=== PATIENT | female | born 1950 | race Caucasian/White ===

== ENCOUNTER 2019-07-10 17:30 | Emergency (ER) | payer MEDICARE, OTHER ==
[~2019-07-10] VITALS: Ht 165.1 cm; Wt 59.0 kg
[~2019-07-10 17:30] MED LIST: CYCL10 PO; HYDACE5 PO; IBUP800 PO; METF500; NYSTRI30T TOP; PIOG45; SULTRIDS PO
[2019-07-10 18:25] LABS: BASOPHILS ABSOLUTE AUTO 0.07 K/mm3 (0.00-0.23); BASOPHILS PERCENT AUTO 1 % (0-2); EOSINOPHILS PERCENT AUTO 1 % (0-6); Hemoglobin 14.9 g/dL (11.5-16.0); IMMATURE GRAN ABSOLUTE AUTO 0.19 K/mm3 (0.00-0.10); IMMATURE GRAN PERCENT AUTO 2 % (0-1); LYMPHOCYTES ABSOLUTE AUTO 2.37 K/mm3 (0.84-5.20); LYMPHOCYTES PERCENT AUTO 24 % (21-46); MONOCYTES ABSOLUTE AUTO 0.66 K/mm3 (0.16-1.47); MONOCYTES PERCENT AUTO 7 % (4-13); Mean Corpuscular HGB 31.2 pg (26.0-34.0); Mean Corpuscular HGB Conc 33.1 g/dL (31.5-36.5); Mean Corpuscular Volume 94 fL (80-100); NEUTROPHILS ABSOLUTE AUTO 6.68 K/mm3 (1.96-9.15); NEUTROPHILS PERCENT AUTO 66 % (41-73); Platelet Count 314 K/mm3 (150-400); RDW Coefficient Variation 12.6 % (11.7-14.2); RDW Standard Deviation 44.2 fL (35.1-46.3); Red Blood Cell Count 4.78 M/mm3 (3.80-5.20); White Blood Cell Count 10.07 K/mm3 (4.00-11.30)
[2019-07-10 18:55] LABS: Alanine Aminotransfer (ALT/SGP 18 U/L (12-78); Albumin, Blood 3.1 g/dL (3.4-5.0); Albumin/Globulin Ratio 0.7 (0.8-1.8); Alk Phos 103 U/L (50-136); Anion Gap 5 mmol/L (6-16); Aspartate Aminotrans (AST/SGOT 14 U/L (12-37); Bilirubin, Total 0.3 mg/dL (0.1-1.0); Blood Urea Nitrogen 24 mg/dL (8-24); Bun/Creatinine Ratio 25.4 (12.0-20.0); CO2, Blood 28 mmol/L (21-32); Calcium, Blood 9.1 mg/dL (8.5-10.1); Chloride, Blood 103 mmol/L (98-108); Creatinine, Blood 0.94 mg/dL (0.40-1.00); Globulin, Blood 4.3 g/dL (2.2-4.0); Glomerular Filtration Rate >60 (60-); Glucose, Blood 304 mg/dL (70-99); Potassium, Blood 3.7 mmol/L (3.5-5.5); Sodium, Blood 136 mmol/L (136-145); Total Protein, Blood 7.4 g/dL (6.4-8.2)
== END 2019-07-10 20:58 | disposition home or self-care (01) ==
LOC: ER 17:30
PROVIDERS: Physician Assistant
DX: R55 Syncope and collapse (principal); E11.9 Type 2 diabetes mellitus without complications; Z79.84 Long term (current) use of oral hypoglycemic drugs; Z79.899 Other long term (current) drug therapy; F17.200 Nicotine dependence, unspecified, uncomplicated
CPT/HCPCS: 36415; 80053; 85025; 93005; 93010; 99284-25

== ENCOUNTER 2019-09-06 17:32 | Inpatient (IN) | payer MEDICARE, OTHER ==
[~2019-09-06] VITALS: Ht 167.6 cm; Wt 67.3 kg
[2019-09-06 18:39] LABS: BASOPHILS ABSOLUTE AUTO 0.05 K/mm3 (0.00-0.23); BASOPHILS PERCENT AUTO 0 % (0-2); EOSINOPHILS ABSOLUTE AUTO 0.01 K/mm3 (0.00-0.68); EOSINOPHILS PERCENT AUTO 0 % (0-6); Hematocrit 41.8 % (33.0-51.0); Hemoglobin 14.2 g/dL (11.5-16.0); IMMATURE GRAN ABSOLUTE AUTO 0.19 K/mm3 (0.00-0.10); IMMATURE GRAN PERCENT AUTO 1 % (0-1); LYMPHOCYTES ABSOLUTE AUTO 0.88 K/mm3 (0.84-5.20); LYMPHOCYTES PERCENT AUTO 7 % (21-46); MONOCYTES ABSOLUTE AUTO 0.58 K/mm3 (0.16-1.47); MONOCYTES PERCENT AUTO 4 % (4-13); Mean Corpuscular HGB 31.2 pg (26.0-34.0); Mean Corpuscular Volume 92 fL (80-100); Mean Platelet Volume 11.3 fL (9.1-12.4); NEUTROPHILS PERCENT AUTO 87 % (41-73); Platelet Count 297 K/mm3 (150-400); RDW Standard Deviation 43.9 fL (35.1-46.3); Red Blood Cell Count 4.55 M/mm3 (3.80-5.20); White Blood Cell Count 13.21 K/mm3 (4.00-11.30)
[2019-09-06 19:04] LABS: Alanine Aminotransfer (ALT/SGP 12 U/L (12-78); Albumin, Blood 2.8 g/dL (3.4-5.0); Albumin/Globulin Ratio 0.7 (0.8-1.8); Alk Phos 90 U/L (50-136); Anion Gap 6 mmol/L (6-16); Aspartate Aminotrans (AST/SGOT 10 U/L (12-37); Bilirubin, Total 0.4 mg/dL (0.1-1.0); Blood Urea Nitrogen 24 mg/dL (8-24); Bun/Creatinine Ratio 29.6 (12.0-20.0); CO2, Blood 28 mmol/L (21-32); Chloride, Blood 103 mmol/L (98-108); Creatinine, Blood 0.81 mg/dL (0.40-1.00); Globulin, Blood 4.3 g/dL (2.2-4.0); Glomerular Filtration Rate >60 (60-); Glucose, Blood 309 mg/dL (70-99); Sodium, Blood 137 mmol/L (136-145); Total Protein, Blood 7.1 g/dL (6.4-8.2)
[2019-09-06 20:04] LABS: Source, Urine Clean Catch
[2019-09-06 20:08] LABS: Bilirubin, Urine Neg (Neg); Blood, Urine 2+ (Neg); Glucose Qualitative, Urine 4+ (Neg); Ketones, Urine 2+ (Neg); Leukocyte Esterase, Urine 1+ (Neg); Nitrite, Urine Neg (Neg); Protein, Urine 4+ (Neg); Specific Gravity, Urine 1.025 (1.003-1.022); Urobilinogen, Urine NORM (Normal)
[2019-09-06 20:16] LABS: Appearance, Urine Hazy (Clear); Color, Urine Yellow (P-Yellow)
[2019-09-06 20:17] LABS: Bacteria Mod /hpf; Squamous Epithelial Cells Mod /hpf (Few); White Blood Cells, Urine 50-100 /hpf (0-5)
--- NOTE | 2019-09-07 02:20 | NUR ---
ASSUMED CARE OF PT TONIGHT.PT IS NEW ADMIT TONIGHT. REQUESTED SLEEPER AND I CALLED DR BELL WHICH GAVE ORDER FOR MELATONIN. PT RCEIVED MELATONIN AND HAS IV FLUIDS INFUSING.
[2019-09-07 06:14] LABS: Hematocrit 40.5 % (33.0-51.0); Hemoglobin 13.2 g/dL (11.5-16.0); Mean Corpuscular HGB 29.9 pg (26.0-34.0); Mean Corpuscular HGB Conc 32.6 g/dL (31.5-36.5); Mean Corpuscular Volume 92 fL (80-100); Mean Platelet Volume 11.5 fL (9.1-12.4); Platelet Count 262 K/mm3 (150-400); RDW Coefficient Variation 13.2 % (11.7-14.2); RDW Standard Deviation 44.6 fL (35.1-46.3); Red Blood Cell Count 4.41 M/mm3 (3.80-5.20); White Blood Cell Count 11.74 K/mm3 (4.00-11.30)
[2019-09-07 06:33] LABS: Anion Gap 5 mmol/L (6-16); Blood Urea Nitrogen 20 mg/dL (8-24); Bun/Creatinine Ratio 26.8 (12.0-20.0); CO2, Blood 29 mmol/L (21-32); Calcium, Blood 8.5 mg/dL (8.5-10.1); Chloride, Blood 106 mmol/L (98-108); Creatinine, Blood 0.75 mg/dL (0.40-1.00); Glomerular Filtration Rate >60 (60-); Glucose, Blood 209 mg/dL (70-99); Potassium, Blood 3.5 mmol/L (3.5-5.5); Sodium, Blood 140 mmol/L (136-145)
--- NOTE | 2019-09-07 13:36 | NUR ---
Echocardiogram completed.
--- NOTE | 2019-09-07 13:40 | NUR ---
Echocardiogram completed.
--- NOTE | 2019-09-07 15:21 | NUR ---
PT GAVE CONSENT FOR THIS CATHEAD WORKER TO PROVIDE CARE TOMORROW 09/08/2019
--- NOTE | 2019-09-07 18:27 | NUR ---
SHIFT SUMMARY PT HAD MRI COMPLETED THIS SHIFT. PT & OT EVALED PT THIS SHIFT. PT UP TO CHAIR TWICE WITH 1-2P ASSIST. NO OTHER CHANGES IN ASSESSMENT AT THIS TIME. VSS. DR. GALLARDO TO CALL PT DAUGHTER WITH UPDATE. WILL CONTINUE TO MONITOR UNTIL TURNOVER IS COMPLETE.
--- NOTE | 2019-09-08 04:55 | NUR ---
SHIFT SUMMARY ADMITTED FOR ACUTE LABRYNTHITIS. FULL CODE. 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 1 ASSIST TO BSC, RA, A&O X4, AC CHEMSTICKS. RASH UNDER BREASTS, AND RT FOOT, AND LEFT LEG. REGULAR DIET. SHE LIVES ALONE. FURTHER DIZZYNESS WILL INFLUENCE DC PLAN, FOR NOW WE ARE TX FOR STROKE AND POSSIBLY VERTIGO. HX: DM2, CHRONIC HEAD TREMOR. LR IS INFUSING @ 75 ML/HR.
--- NOTE | 2019-09-08 09:37 | NUR ---
RASH UNDER BREAST & FOOT. DR. THORNE CALLED ABOUT PT RASH UNDER BEAST. NYSTATIN ORDERED TID. DR. THORNE ALSO INFORMED OF RASH ON PT FEET. STATES SHE WILL LOOK AT SKIN DURING HER ROUNDS. WILL CONTINUE TO MONITOR.
--- NOTE | 2019-09-08 17:36 | NUR ---
SHIFT SUMMARY PT WORKING WELL WITH PT & OT. PT AMBULATED HALLWAY WITH PT. PT TRANSFERING TO BEDSIDE COMMODE INDEPENDENTLY. PT STATES "DIZZINESS HAS IMPROVED" NO OTHER CHANGES IN ASSESSMENT AT THIS TIME. PT HAS BED BATH TODAY AND HAIR WASHED. VSS. WILL CONTINUE TO MONITOR UNTIL TURNOVER IS COMPLETE.
--- NOTE | 2019-09-09 04:05 | NUR ---
TUBING TESTER SUMMARY PT A/O X4. INDEPENDENT IN ROOM TO BEDSIDE COMMODE. DENIES PAIN, DIZZINIESS, NAUSEA AND OTHER DISCOMFORTS. SLEPT WELL TONIGHT. KENALOG CREAM APPLIED TO DERMATITIS ON BILATERAL FOOT. VSS, NO ACUTE CHANGES. CALL LIGHT WITHIN REACH. BED IN LOWEST POSITION. WILL CONTINUE TO MONITOR.
[2019-09-09 05:09] LABS: BASOPHILS ABSOLUTE AUTO 0.09 K/mm3 (0.00-0.23); BASOPHILS PERCENT AUTO 1 % (0-2); EOSINOPHILS ABSOLUTE AUTO 0.15 K/mm3 (0.00-0.68); EOSINOPHILS PERCENT AUTO 2 % (0-6); Hematocrit 40.1 % (33.0-51.0); Hemoglobin 13.1 g/dL (11.5-16.0); IMMATURE GRAN ABSOLUTE AUTO 0.41 K/mm3 (0.00-0.10); IMMATURE GRAN PERCENT AUTO 5 % (0-1); LYMPHOCYTES ABSOLUTE AUTO 2.21 K/mm3 (0.84-5.20); LYMPHOCYTES PERCENT AUTO 25 % (21-46); MONOCYTES ABSOLUTE AUTO 0.66 K/mm3 (0.16-1.47); MONOCYTES PERCENT AUTO 8 % (4-13); Mean Corpuscular HGB 30.3 pg (26.0-34.0); Mean Corpuscular HGB Conc 32.7 g/dL (31.5-36.5); Mean Corpuscular Volume 93 fL (80-100); Mean Platelet Volume 11.5 fL (9.1-12.4); NEUTROPHILS ABSOLUTE AUTO 5.33 K/mm3 (1.96-9.15); NEUTROPHILS PERCENT AUTO 60 % (41-73); Platelet Count 261 K/mm3 (150-400); RDW Coefficient Variation 12.8 % (11.7-14.2); RDW Standard Deviation 43.8 fL (35.1-46.3); Red Blood Cell Count 4.32 M/mm3 (3.80-5.20); White Blood Cell Count 8.85 K/mm3 (4.00-11.30)
[2019-09-09 05:32] LABS: Alanine Aminotransfer (ALT/SGP 11 U/L (12-78); Albumin, Blood 2.4 g/dL (3.4-5.0); Albumin/Globulin Ratio 0.7 (0.8-1.8); Alk Phos 74 U/L (50-136); Anion Gap 6 mmol/L (6-16); Aspartate Aminotrans (AST/SGOT 11 U/L (12-37); Bilirubin, Total 0.2 mg/dL (0.1-1.0); Blood Urea Nitrogen 25 mg/dL (8-24); Bun/Creatinine Ratio 29.3 (12.0-20.0); CO2, Blood 30 mmol/L (21-32); Calcium, Blood 8.6 mg/dL (8.5-10.1); Chloride, Blood 101 mmol/L (98-108); Creatinine, Blood 0.85 mg/dL (0.40-1.00); Globulin, Blood 3.6 g/dL (2.2-4.0); Glomerular Filtration Rate >60 (60-); Glucose, Blood 228 mg/dL (70-99); Potassium, Blood 4.1 mmol/L (3.5-5.5); Sodium, Blood 137 mmol/L (136-145)
--- NOTE | 2019-09-09 18:24 | NUR ---
SHFIT SUMMARY PT CHANGED TO ADA DIET DUE TO SUGAR ELEVATION. PT DENIES PAIN THROUGHOUT SHIFT. AMBULATED WITH PT THIS SHIFT. UP TO CHAIR OR BEC INDEPENDENTLY. NO OTHER CHANGES IN ASSESSMENT AT THIS TIME. PT EDUCATED ON REASON FOR INSULIN. CARE MANAGEMENT WORKING ON DC PLAN. WILL CONTINUE TO MONITOR UNTIL TURNOVER IS COMPLETE.
--- NOTE | 2019-09-10 04:47 | NUR ---
SHIFT SUMMARY: VSS. AFEB. A/OX3. COMMUNICATES NEEDS. DOES NOT CALL FOR ASSIST FOR T/F IN ROOM DESPITE ENCOURAGEMENT TO DO SO. SHE DOES HOWEVER USE A W/C FOR LONGER DISTANCES. DENIES DIZZINESS EXCEPT WHEN SHE LEFT THE HOSPITAL W/ HER SISTER TO SMOKE. STATED THAT LOOKING AROUND WHILE MOVING IN THE WHEELCHAIR SEEMED TO TRIGGER SOME MINOR VERTIGO. NO FACIAL DROOP, TONG HOOKER/PUSHES/PULLS ALL EQUAL BILATERALLY. SPEECH SLOW BUT CLEAR. NO ACUTE CHANGES. WILL CONT TO MONITOR.
[2019-09-10] MEDS ORDERED: ASPI81CH PO (09:58)
[2019-09-10] MEDS ORDERED: ATOR40TA PO (09:59)
[2019-09-10] MEDS ORDERED: METF500 PO (10:00)
[2019-09-10] MEDS ORDERED: CLOP75 PO (10:00)
[2019-09-10] MEDS ORDERED: BASAGLAR K100 UNIT/1 SC (10:01)
--- NOTE | 2019-09-10 10:21 | NUR ---
DISCHARGE INSTRUCTIONS REVIEWED WITH PT. IV DC'D INTACT. EDUCATION AND DEMONSTRATION GIVEN ON INSULIN AND NEW MEDS. [facility] 2 LANTUS PENS TO BE FILLED TO GET PT THROUGH 30 DAYS UNTIL ESTABLISHED WITH A NEW PCP IN [place], THIS WAS CALLED TO PHARMACY. PT TO DISCHARGE HOME WITH SISTER AND THEN DAUGHTER FLYING IN TOMORROW TO TAKE BACK TO [place]. CURRENTLY AWAITING RIDE HOME.
--- NOTE | 2019-09-10 11:45 | NUR ---
PT DISCHARGED HOME AT 1140 WITH SISTER, ESCORTED OUT VIA W/C.
== END 2019-09-10 11:41 | disposition home or self-care (01) | DRG 64 ==
LOC: ER 17:32 → MEDS 17:33 → ER 22:31 → MEDS 22:38
PROVIDERS: Emergency Medicine; Internal Medicine; Physician Assistant; ADMIT Internal Medicine
DX: I63.9 Cerebral infarction, unspecified (principal); E43 Unspecified severe protein-calorie malnutrition; R42 Dizziness and giddiness; R26.81 Unsteadiness on feet; Z91.81 History of falling; E11.65 Type 2 diabetes mellitus with hyperglycemia; F17.200 Nicotine dependence, unspecified, uncomplicated; G25.0 Essential tremor; E78.5 Hyperlipidemia, unspecified; E88.09 Other disorders of plasma-protein metabolism, not elsewhere classified; R82.71 Bacteriuria; I77.89 Other specified disorders of arteries and arterioles; L30.1 Dyshidrosis [pompholyx]; Z68.30 Body mass index [BMI] 30.0-30.9, adult
CPT/HCPCS: 36415; 70450; 70551; 80048; 80053; 81001; 82947; 83036; 84443; 85025; 85027; 87086; 93005; 93010; 93306; 93880; 96361; 96374; 96375; 97110; 97116; 97162; 97165; 97530; 97535; 99285-25; G0378; J0696; J1650; J2405; J7030; J7050; J7120

== ENCOUNTER 2021-05-09 13:22 | Inpatient (IN) | payer MEDICARE, OTHER ==
[~2021-05-09] VITALS: Ht 165.1 cm; Wt 77.0 kg
[~2021-05-09 13:22] MED LIST changes: +ASPI81CH PO; +ATOR40TA PO; +BASAGLAR K100 UNIT/1 SC; +CLOP75 PO; +METF500 PO
[2021-05-09 14:37] LABS: Albumin, Blood 2.2 g/dL (3.4-5.0); Albumin/Globulin Ratio 0.5 (0.8-1.8); Bilirubin, Total 0.4 mg/dL (0.1-1.0); Bun/Creatinine Ratio 17.8 (12.0-20.0); Calcium, Blood 8.4 mg/dL (8.5-10.1); Creatinine, Blood 1.8 mg/dL (0.40-1.00); Globulin, Blood 4.6 g/dL (2.2-4.0); Potassium, Blood 3.5 mmol/L (3.5-5.5); Total Protein, Blood 6.8 g/dL (6.4-8.2)
[2021-05-09 14:40] LABS: BASOPHILS ABSOLUTE AUTO 0.05 K/mm3 (0.00-0.23); BASOPHILS PERCENT AUTO 0 % (0-2); EOSINOPHILS ABSOLUTE AUTO 0.01 K/mm3 (0.00-0.68); EOSINOPHILS PERCENT AUTO 0 % (0-6); Hematocrit 37.3 % (33.0-51.0); Hemoglobin 11.8 g/dL (11.5-16.0); IMMATURE GRAN ABSOLUTE AUTO 0.25 K/mm3 (0.00-0.10); IMMATURE GRAN PERCENT AUTO 1 % (0-1); LYMPHOCYTES ABSOLUTE AUTO 1.38 K/mm3 (0.84-5.20); LYMPHOCYTES PERCENT AUTO 7 % (21-46); MONOCYTES ABSOLUTE AUTO 1.12 K/mm3 (0.16-1.47); MONOCYTES PERCENT AUTO 6 % (4-13); Mean Corpuscular HGB 29.4 pg (26.0-34.0); Mean Corpuscular HGB Conc 31.6 g/dL (31.5-36.5); Mean Corpuscular Volume 93 fL (80-100); Mean Platelet Volume 10.8 fL (9.1-12.4); NEUTROPHILS ABSOLUTE AUTO 16.95 K/mm3 (1.96-9.15); NEUTROPHILS PERCENT AUTO 86 % (41-73); Platelet Count 451 K/mm3 (150-400); RDW Coefficient Variation 14.6 % (11.7-14.2); RDW Standard Deviation 50.3 fL (35.1-46.3); Red Blood Cell Count 4.02 M/mm3 (3.80-5.20); White Blood Cell Count 19.76 K/mm3 (4.00-11.30)
[2021-05-09 19:24] LABS: Source, Urine Clean Catch
[2021-05-09 19:30] LABS: Appearance, Urine Cloudy (Clear); Bilirubin, Urine Neg (Neg); Blood, Urine 1+ (Neg); Color, Urine Yellow (P-Yellow); Glucose Qualitative, Urine Neg (Neg); Ketones, Urine 1+ (Neg); Leukocyte Esterase, Urine 3+ (Neg); Nitrite, Urine Neg (Neg); Protein, Urine 4+ (Neg); Urobilinogen, Urine NORM (Normal)
[2021-05-09 20:15] LABS: White Blood Cells, Urine 25-50 /hpf (0-5)
[2021-05-09 20:16] LABS: Bacteria Many /hpf; Squamous Epithelial Cells Few /hpf (Few)
[2021-05-09 20:18] LABS: Amorphous Mod (0-Heavy); Triple Phosphate Crystals Few /hpf
[2021-05-09] MEDS ORDERED: ESCI20 PO (20:24)
[2021-05-09] MEDS ORDERED: REMERON PO (20:24)
[2021-05-09] MEDS ORDERED: ELIQUIS5 M3 PO (20:24)
[2021-05-09] MEDS ORDERED: AMLODIPINE BESY10 MG PO (20:25)
[2021-05-09] MEDS ORDERED: Aspir 8181 MG PO (20:38)
--- NOTE | 2021-05-09 22:50 | NUR ---
TRANSFER NOTE REPORT FROM MARVA BUSTAMANTE RN. PT TO ROOM VIA [facility]. PT STOOD AND TURNED FROM [facility] TO HOSPITAL BED. PT ORIENTED TO ROOM/UNIT AND INSTRUCTED ON USE OF CALL LIGHT. PT MEDICATED. CALL LIGHT WITHIN REACH.
[2021-05-09 22:55] LABS: CPK Creatine Kinase 121 U/L (26-193); Troponin I <0.015 ng/mL (0.000-0.040)
--- NOTE | 2021-05-10 05:17 | NUR ---
SENIOR CATERING SALES MANAGER SUMMARY ADMITTED FOR UTI/SEPSIS. PT IS A FULL CODE. PT REQUESTING SIZE PAINTER CONSULT REGARDING HOME CARE AND POSSIBLE PLACEMENT. PT HAS BEEN RESTING THROUGHOUT THE NIGHT. MEDICATED WITH MELATONIN AT BEDTIME. MEDICATED X1 FOR PAIN IN HER RIBS. NO OTHER CONCERNS THIS SHIFT.
[2021-05-10 06:25] LABS: BASOPHILS ABSOLUTE AUTO 0.07 K/mm3 (0.00-0.23); BASOPHILS PERCENT AUTO 0 % (0-2); EOSINOPHILS ABSOLUTE AUTO 0.15 K/mm3 (0.00-0.68); EOSINOPHILS PERCENT AUTO 1 % (0-6); Hematocrit 30.7 % (33.0-51.0); Hemoglobin 9.6 g/dL (11.5-16.0); IMMATURE GRAN ABSOLUTE AUTO 0.28 K/mm3 (0.00-0.10); IMMATURE GRAN PERCENT AUTO 2 % (0-1); LYMPHOCYTES ABSOLUTE AUTO 2.97 K/mm3 (0.84-5.20); LYMPHOCYTES PERCENT AUTO 16 % (21-46); MONOCYTES ABSOLUTE AUTO 1.33 K/mm3 (0.16-1.47); MONOCYTES PERCENT AUTO 7 % (4-13); Mean Corpuscular HGB 29.4 pg (26.0-34.0); Mean Corpuscular HGB Conc 31.3 g/dL (31.5-36.5); Mean Corpuscular Volume 94 fL (80-100); Mean Platelet Volume 10.6 fL (9.1-12.4); NEUTROPHILS ABSOLUTE AUTO 13.43 K/mm3 (1.96-9.15); NEUTROPHILS PERCENT AUTO 74 % (41-73); Platelet Count 321 K/mm3 (150-400); RDW Coefficient Variation 14.6 % (11.7-14.2); RDW Standard Deviation 50.7 fL (35.1-46.3); Red Blood Cell Count 3.26 M/mm3 (3.80-5.20); White Blood Cell Count 18.23 K/mm3 (4.00-11.30)
[2021-05-10 06:47] LABS: Alanine Aminotransfer (ALT/SGP 9 U/L (12-78); Albumin, Blood 1.7 g/dL (3.4-5.0); Albumin/Globulin Ratio 0.5 (0.8-1.8); Alk Phos 125 U/L (50-136); Anion Gap 8 mmol/L (6-16); Aspartate Aminotrans (AST/SGOT 13 U/L (12-37); Bilirubin, Total 0.2 mg/dL (0.1-1.0); Blood Urea Nitrogen 33 mg/dL (8-24); Bun/Creatinine Ratio 19.6 (12.0-20.0); CO2, Blood 26 mmol/L (21-32); CPK Creatine Kinase 113 U/L (26-193); Calcium, Blood 7.3 mg/dL (8.5-10.1); Chloride, Blood 109 mmol/L (98-108); Creatinine, Blood 1.68 mg/dL (0.40-1.00); Globulin, Blood 3.7 g/dL (2.2-4.0); Glomerular Filtration Rate 30 (60-); Glucose, Blood 143 mg/dL (70-99); Potassium, Blood 3.6 mmol/L (3.5-5.5); Sodium, Blood 143 mmol/L (136-145); Total Protein, Blood 5.4 g/dL (6.4-8.2); Troponin I <0.015 ng/mL (0.000-0.040)
[2021-05-11 05:21] LABS: BASOPHILS ABSOLUTE AUTO 0.08 K/mm3 (0.00-0.23); BASOPHILS PERCENT AUTO 1 % (0-2); EOSINOPHILS ABSOLUTE AUTO 0.22 K/mm3 (0.00-0.68); EOSINOPHILS PERCENT AUTO 2 % (0-6); Hematocrit 30.9 % (33.0-51.0); IMMATURE GRAN ABSOLUTE AUTO 0.42 K/mm3 (0.00-0.10); IMMATURE GRAN PERCENT AUTO 3 % (0-1); LYMPHOCYTES ABSOLUTE AUTO 2.31 K/mm3 (0.84-5.20); LYMPHOCYTES PERCENT AUTO 19 % (21-46); MONOCYTES ABSOLUTE AUTO 0.94 K/mm3 (0.16-1.47); MONOCYTES PERCENT AUTO 8 % (4-13); Mean Corpuscular HGB 29.9 pg (26.0-34.0); Mean Corpuscular HGB Conc 32.4 g/dL (31.5-36.5); Mean Corpuscular Volume 93 fL (80-100); Mean Platelet Volume 11.1 fL (9.1-12.4); NEUTROPHILS ABSOLUTE AUTO 8.38 K/mm3 (1.96-9.15); NEUTROPHILS PERCENT AUTO 68 % (41-73); Platelet Count 305 K/mm3 (150-400); RDW Coefficient Variation 13.9 % (11.7-14.2); RDW Standard Deviation 47.4 fL (35.1-46.3); Red Blood Cell Count 3.34 M/mm3 (3.80-5.20); White Blood Cell Count 12.35 K/mm3 (4.00-11.30)
[2021-05-11 05:53] LABS: Albumin, Blood 1.7 g/dL (3.4-5.0); Albumin/Globulin Ratio 0.4 (0.8-1.8); Bilirubin, Total 0.2 mg/dL (0.1-1.0); Bun/Creatinine Ratio 20.2 (12.0-20.0); Calcium, Blood 7.9 mg/dL (8.5-10.1); Creatinine, Blood 1.29 mg/dL (0.40-1.00); Globulin, Blood 3.8 g/dL (2.2-4.0); Potassium, Blood 3.5 mmol/L (3.5-5.5); Total Protein, Blood 5.5 g/dL (6.4-8.2)
--- NOTE | 2021-05-11 06:05 | NUR ---
PATIENT IS ASLEEP LYING IN BED. RR EVEN AND UNLABORED, NO EVIDENCE OF PAIN. NO ACUTE CHANGES OVERNIGHT. BED IN LOW POSITION AND CALL LIGHT WITHIN REACH.
--- NOTE | 2021-05-11 17:14 | NUR ---
PT AOX4 AND COOPERATIVE OF CARE. PT CONTINUES TO HAVE RIB PAIN DUE TO FX RIB AND WAS TREATED PER EMAR. PT WORKED WITH BOTH OT AND PHYSICAL THERAPY AND THEY STATED PT TRIED TO WORK WELL WITH THEM. PT HAS CALL LIGHT WITHIN REACH AND WILL CONTINUE TO BE MONITORED.
[2021-05-12 05:04] LABS: BASOPHILS ABSOLUTE AUTO 0.09 K/mm3 (0.00-0.23); BASOPHILS PERCENT AUTO 1 % (0-2); EOSINOPHILS ABSOLUTE AUTO 0.25 K/mm3 (0.00-0.68); EOSINOPHILS PERCENT AUTO 3 % (0-6); Hematocrit 31.3 % (33.0-51.0); Hemoglobin 10.2 g/dL (11.5-16.0); IMMATURE GRAN ABSOLUTE AUTO 0.56 K/mm3 (0.00-0.10); IMMATURE GRAN PERCENT AUTO 6 % (0-1); LYMPHOCYTES PERCENT AUTO 19 % (21-46); MONOCYTES ABSOLUTE AUTO 0.92 K/mm3 (0.16-1.47); MONOCYTES PERCENT AUTO 9 % (4-13); Mean Corpuscular HGB 29.7 pg (26.0-34.0); Mean Corpuscular HGB Conc 32.6 g/dL (31.5-36.5); Mean Corpuscular Volume 91 fL (80-100); Mean Platelet Volume 11.1 fL (9.1-12.4); NEUTROPHILS PERCENT AUTO 63 % (41-73); Platelet Count 315 K/mm3 (150-400); RDW Coefficient Variation 13.7 % (11.7-14.2); RDW Standard Deviation 45.8 fL (35.1-46.3); Red Blood Cell Count 3.44 M/mm3 (3.80-5.20); White Blood Cell Count 10.12 K/mm3 (4.00-11.30)
[2021-05-12 05:32] LABS: Albumin, Blood 1.6 g/dL (3.4-5.0); Anion Gap 7 mmol/L (6-16); Blood Urea Nitrogen 21 mg/dL (8-24); Bun/Creatinine Ratio 18.4 (12.0-20.0); CO2, Blood 26 mmol/L (21-32); Calcium, Blood 7.9 mg/dL (8.5-10.1); Chloride, Blood 105 mmol/L (98-108); Creatinine, Blood 1.14 mg/dL (0.40-1.00); Glomerular Filtration Rate 47 (60-); Glucose, Blood 110 mg/dL (70-99); Phosphorus, Blood 2.9 mg/dL (2.5-4.9); Potassium, Blood 3.6 mmol/L (3.5-5.5); Sodium, Blood 138 mmol/L (136-145)
[2021-05-12 05:33] LABS: BAND PERCENT MAN 2 % (0-8); BASOPHILS PERCENT MAN 0 % (0-2); EOSINOPHILS PERCENT MAN 1 % (0-6); LYMPHOCYTES ABSOLUTE MAN 1.21 K/mm3 (0.84-5.20); LYMPHOCYTES PERCENT MAN 12 % (21-46); METAMYELOCYTE PERCENT MAN 1 % (0-0); MONOCYTES ABSOLUTE MAN 0.91 K/mm3 (0.16-1.47); MONOCYTES PERCENT MAN 9 % (4-13); MYELOCYTE PERCENT MAN 6 % (0-0); NEUTROPHILS ABSOLUTE MAN 7.08 K/mm3 (1.96-9.15); PROMYELOCYTE PERCENT MAN 1 % (0-0); SEG NEUTROPHILS PERCENT MAN 68 % (41-73); TOTAL CELLS COUNTED 100
--- NOTE | 2021-05-12 06:49 | NUR ---
PATIENT IS ASLEEP LYING IN BED. RR EVEN AND UNLABORED, NO EVIDENCE OF PAIN. NO ACUTE CHANGES OVERNIGHT. BED IN LOW POSITION, BED ALARM ON AND CALL LIGHT WITHIN REACH.
[2021-05-12] MEDS ORDERED: VITAMIN C125 MG PO (14:47)
[2021-05-12] MEDS ORDERED: Acetaminophen325 M1 PO (14:47)
[2021-05-12] MEDS ORDERED: LEVOFLOXACIN750 MG PO (14:48)
[2021-05-12] MEDS ORDERED: MELA3 PO (14:48)
[2021-05-12] MEDS ORDERED: VISBIOME 112.51 EACH PO (14:48)
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
[2021-05-13 04:57] LABS: EOSINOPHILS ABSOLUTE AUTO 0.19 K/mm3 (0.00-0.68); EOSINOPHILS PERCENT AUTO 2 % (0-6); Hematocrit 31.7 % (33.0-51.0); Hemoglobin 10.6 g/dL (11.5-16.0); IMMATURE GRAN ABSOLUTE AUTO 0.73 K/mm3 (0.00-0.10); IMMATURE GRAN PERCENT AUTO 7 % (0-1); LYMPHOCYTES ABSOLUTE AUTO 1.63 K/mm3 (0.84-5.20); LYMPHOCYTES PERCENT AUTO 16 % (21-46); MONOCYTES PERCENT AUTO 10 % (4-13); Mean Corpuscular HGB 29.9 pg (26.0-34.0); Mean Corpuscular HGB Conc 33.4 g/dL (31.5-36.5); Mean Corpuscular Volume 90 fL (80-100); Mean Platelet Volume 10.7 fL (9.1-12.4); NEUTROPHILS ABSOLUTE AUTO 6.94 K/mm3 (1.96-9.15); NEUTROPHILS PERCENT AUTO 66 % (41-73); Platelet Count 323 K/mm3 (150-400); RDW Coefficient Variation 13.5 % (11.7-14.2); RDW Standard Deviation 44.4 fL (35.1-46.3); Red Blood Cell Count 3.54 M/mm3 (3.80-5.20); White Blood Cell Count 10.52 K/mm3 (4.00-11.30)
[2021-05-13 04:58] LABS: BASOPHILS ABSOLUTE AUTO 0.03 K/mm3 (0.00-0.23); BASOPHILS PERCENT AUTO 0 % (0-2)
[2021-05-13 05:20] LABS: Albumin, Blood 1.6 g/dL (3.4-5.0); Anion Gap 6 mmol/L (6-16); Blood Urea Nitrogen 17 mg/dL (8-24); Bun/Creatinine Ratio 15.6 (12.0-20.0); CO2, Blood 27 mmol/L (21-32); Calcium, Blood 8.2 mg/dL (8.5-10.1); Chloride, Blood 103 mmol/L (98-108); Creatinine, Blood 1.09 mg/dL (0.40-1.00); Glomerular Filtration Rate 50 (60-); Glucose, Blood 136 mg/dL (70-99); Phosphorus, Blood 3.3 mg/dL (2.5-4.9); Potassium, Blood 3.7 mmol/L (3.5-5.5); Sodium, Blood 136 mmol/L (136-145)
[2021-05-13 05:27] LABS: BAND PERCENT MAN 3 % (0-8); BASOPHILS PERCENT MAN 0 % (0-2); EOSINOPHILS PERCENT MAN 1 % (0-6); LYMPHOCYTES ABSOLUTE MAN 1.89 K/mm3 (0.84-5.20); LYMPHOCYTES PERCENT MAN 18 % (21-46); METAMYELOCYTE ABSOLUTE MAN 0.52 K/mm3 (0.00-0.00); METAMYELOCYTE PERCENT MAN 5 % (0-0); MONOCYTES ABSOLUTE MAN 0.31 K/mm3 (0.16-1.47); MONOCYTES PERCENT MAN 3 % (4-13); MYELOCYTE PERCENT MAN 1 % (0-0); NEUTROPHILS ABSOLUTE MAN 7.57 K/mm3 (1.96-9.15); SEG NEUTROPHILS PERCENT MAN 69 % (41-73); TOTAL CELLS COUNTED 100
--- NOTE | 2021-05-13 06:26 | NUR ---
PATIENT IS ASLEEP LYING IN BED. NOT ACUTE CHANGES OVERNIGHT. RR EVEN AND UNLABORED, NO EVIDENCE OF PAIN. BED IN LOW POSITION AND CALL LIGHT WITHIN REACH.
--- NOTE | 2021-05-13 17:38 | NUR ---
PT PLEASANT TODAY. DR MEYERS HOLDING D.C UNTIL SATURDAY TO REVIEW WITH CARE MANAGEMENT. NO C/O PAIN TODAY. NO NEW CONCERNS NOTED TODAY. BED IN LOW POSITION, CALL LITE IN REACH, CALLS APPROP
--- NOTE | 2021-05-14 05:48 | NUR ---
PATIENT IS ASLEEP LYING IN BED. NO ACUTE CHANGES OVERNIGHT, VS WNL, RR EVEN AND UNLABORED. BED IN LOW POSITION AND CALL LIGHT WITHIN REACH.
--- NOTE | 2021-05-14 16:47 | NUR ---
SHIFT SUMMARY: PT A/O STAYED IN BED THROUGHOUT SHIFT. SHE ATE WELL AND DRANK FLUIDS WELL. SHE HAD NO CO PAIN THROUGHOUT THE DAY. NO ACUTE CONCERNS AT THIS TIME.
--- NOTE | 2021-05-15 04:05 | NUR ---
SUMMARY PT HAD NO NEW ISSUES NOTED. PT HAS RESTED/ SLEPT WELL THROUGHOUT SHIFT. PT CURRENTLY SLEEPING AND IN NO DISTRESS. CALL LIGHT IN REACH.
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
--- NOTE | 2021-05-15 19:33 | NUR ---
SHIFT SUMMARY: PT A/O X 4 ONE PERSON ASSIST TO CHAIR PER OT. PT RESISTIVE TO GETTING OOB. PT HAS NOT HAD A BM IN 5 DAYS. PRUNE JUICE COCKTAIL GIVEN, WITH NO RESULTS AT SHIFT END. PT TOLERATING PO FOOD AND FLUIDS WELL, NO S/S OF CHOKING OR ASPIRATION. PT HAD R RIB PAIN TYELNOL GIVEN AND PAIN RESOLVED. PT AWAITING PLACEMENT. NOTIFIED CARE MANAGEMENT OF PT CONCERNS WITH SISTER LIVING IN HER HOUSE.
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
--- NOTE | 2021-05-16 18:33 | NUR ---
SHIFT SUMMARY: NO ACUTE EVENTS. C/O PAIN IN R RIBCAGE; MEDICATED WITH GOOD EFFECT. A&O X 2, TREMORS, SOME EXP APHASIA. UPGRADED TO [facility] SOFT DIET, TOLERATING. SLEPT MOST OF THE AFTERNOON. WORKED WITH PT/OT. WILL START GETTING IN TO CHAIR FOR MEALS.
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
--- NOTE | 2021-05-17 06:59 | NUR ---
PT continues without complaints of acute distress. Contact isolation for ESBL in urine. Incont of urine. ABD soft no BM yet with bowel care given
--- NOTE | 2021-05-17 18:20 | NUR ---
SHIFT SUMMARY: NO ACUTE EVENTS. DOES NOT PARTICIPATE IN HER CARE. NO BM SINCE 05/10; REFUSED BOWEL MEDS. INCONTINENT OF B&B. DENIED PAIN. TOLERATING PO INTAKE, NO N/V. WAS SEEN BY PT/OT.
--- NOTE | 2021-05-18 04:37 | NUR ---
PT IS A&O, ON RA, INCONTINENT OF B&B. PT C/O PAIN ON LEFT SHOULDER. PRN PAIN MED ADMINISTERED WITH GOOD EFFECTS. ADLS PROVIDED. SAFETY MEASURES IN PLACE. WILL CONTINUE TO MONITOR.
--- NOTE | 2021-05-18 17:14 | NUR ---
SHIFT SUMMARY PATIENT MEDUCATED X1 FOR RIB PAIN THIS HSIFT. DENIES NAUSEA AND SHORTNESS OF BREATH. NO BM SEVERAL DAYS, BOWEL CARE GIVEN. UP SBA TO CHAIR FOR LUNCH. PATIENT WORKED WITH PT AND OT. PATIENT REQUIRES SIGNIFICANT ENCOURAGEMENT TO GET OUT OF BED. PLEASANT AND COOPERATIVE WITH CARE.
--- NOTE | 2021-05-19 05:49 | NUR ---
END OF SHIFT SUMMARY: Pt is withdrawn and doesnt say much. Reluctant to express needs. Pt incontinent and does not call to inform she needs changing. Frequent rounding. Denies discomfort. No complaints of SOB. Uneventful night. Call light within reach.
--- NOTE | 2021-05-19 14:59 | NUR ---
PT STATES FEELS OFF, VSS EXCEPT LIGHT FEVER. 11.3. MED PER EMAR
--- NOTE | 2021-05-19 18:15 | NUR ---
PT PLEASANT TODAY. DOES STATE FEELS A LITTLE OFF TODAY. SHE SEEMS SOME LESS TALKATIVE TODAY. DID HAVE FEVER, MED WITH TYLENOL. COMING DOWN. DOES NOT APPEAR TO HAVE HAD BM FOR ABOUT A WEEK. DEVANTE GARCIA ADMIN AND CALLED DR FOR ORDERS FOR M.O.M. AND DULCOLAX SUPPOSITORY. STATED WILL PLACE. NO NEW CONCERNS NOTED. BED IN LOW POSITION, CALL LITE IN REACH. BED ALARM ON FOR SAFETY
[2021-05-20 01:09] LABS: Mean Corpuscular HGB 30.3 pg (26.0-34.0); Mean Corpuscular HGB Conc 32.1 g/dL (31.5-36.5); Mean Corpuscular Volume 94 fL (80-100); Mean Platelet Volume 10.7 fL (9.1-12.4); NRBC ABSOLUTE 0.12 K/mm3 (0.00-0.02); NRBC Auto 0.7 /100 WBC (0.0-0.2); Platelet Count 322 K/mm3 (150-400); RDW Coefficient Variation 14.3 % (11.7-14.2); RDW Standard Deviation 48.5 fL (35.1-46.3); Red Blood Cell Count 1.42 M/mm3 (3.80-5.20); White Blood Cell Count 16.06 K/mm3 (4.00-11.30)
[2021-05-20 01:14] LABS: Hematocrit 13.4 % (33.0-51.0); Hemoglobin 4.3 g/dL (11.5-16.0)
[2021-05-20 01:24] LABS: Bun/Creatinine Ratio 55.4 (12.0-20.0); Calcium, Blood 8.1 mg/dL (8.5-10.1); Creatinine, Blood 1.39 mg/dL (0.40-1.00)
[2021-05-20 01:37] LABS: BAND PERCENT MAN 4 % (0-8); BASOPHILS PERCENT MAN 0 % (0-2); EOSINOPHILS ABSOLUTE MAN 0.16 K/mm3 (0.00-0.68); EOSINOPHILS PERCENT MAN 1 % (0-6); LYMPHOCYTES ABSOLUTE MAN 1.28 K/mm3 (0.84-5.20); LYMPHOCYTES PERCENT MAN 8 % (21-46); METAMYELOCYTE ABSOLUTE MAN 0.64 K/mm3 (0.00-0.00); METAMYELOCYTE PERCENT MAN 4 % (0-0); MONOCYTES ABSOLUTE MAN 0.64 K/mm3 (0.16-1.47); MONOCYTES PERCENT MAN 4 % (4-13); MYELOCYTE ABSOLUTE MAN 0.64 K/mm3 (0.00-0.00); MYELOCYTE PERCENT MAN 4 % (0-0); NEUTROPHILS ABSOLUTE MAN 12.68 K/mm3 (1.96-9.15); SEG NEUTROPHILS PERCENT MAN 75 % (41-73); TOTAL CELLS COUNTED 100
--- NOTE | 2021-05-20 01:37 | NUR ---
2342: Pt is found having bloody emesis with red clood clots that is puddled on the floor. Pt is lethargic but answers questions right. VSS. Pale. She also has BM and it is dark tarry stool. Provider notified. Stat H&H ordered. Pt being transfered to ICU, report given.
[2021-05-20 03:45] LABS: Source, Urine Catheter
--- NOTE | 2021-05-20 03:46 | NUR ---
0040 PATIENT REPORT RECEIVED FROM INAR (PCU NURSE PHONE) 0155 PATIENT RECEIVED AT BEDSIDE, -PATIENT ORIENTED X1 (NAME), MOANING, DROWSY, LETHARFGIC -WEAK RADIAL PULSE, LOW BP 90/40 MAP 55 -PATIENT PLACED IN NASAL CANNULA 5 L -PARTIENT VOMITED LARGE BLOOD CLOT, MD DE LA TORRE CALLED, OUTSIDE PARTS SALESMAN ACTIVATED -PATIENT COMPLAINT ABOUT STOMACHACHE -HEMOGLOBIN 4.3 CRITICAL VALUE -2 PIV 20 JESUS ALBERTO INSERTED -SKIN IS INTACT 0115 -PATIENT INTUBATED AND SEDATED -3 UNITS OF BLOOD ADMINISTERED, LEVOPHED, 1000 ML BOLUS ADMINISTERED, PROPOFOL, MIDAZOLAN -PLATA CATHETER INSERTED AND ESPECIMEN SENT TO LAB -BMP, CBC SENT TO THE LAB -CENTRAL LINE INSERTED LEFT IJ [address] STOMA AND PELVIS - PATIENT IN STABLE CONDITIONS, BP 110/60 MAP 75, O2 SAT 100%, PULSE 90 0400 PATIENT SENT TO [facility], NURSE SONJA
[2021-05-20 03:48] LABS: Bilirubin, Urine Neg (Neg); Blood, Urine 2+ (Neg); Glucose Qualitative, Urine 2+ (Neg); Ketones, Urine Neg (Neg); Leukocyte Esterase, Urine 2+ (Neg); Nitrite, Urine Neg (Neg); Protein, Urine 4+ (Neg); Urobilinogen, Urine NORM (Normal)
--- NOTE | 2021-05-20 04:24 | NUR ---
BELONGINGS ONE SHIRT, AND ONE PAIR OF PANTS SENT WITH PT TO [facility] WITH REACH CREW.
[2021-05-20 04:52] LABS: Appearance, Urine Hazy (Clear); Color, Urine Yellow (P-Yellow)
[2021-05-20 04:54] LABS: Bacteria Mod /hpf; Red Blood Cells, Urine 0-2 /hpf (0-2); White Blood Cells, Urine TNTC /hpf (0-5)
[2021-05-20 04:55] LABS: Amorphous Mod (0-Heavy); Hyaline Casts 50-100 /lpf (0-2); Squamous Epithelial Cells Few /hpf (Few)
== END 2021-05-20 04:42 | disposition short-term general hospital (02) | DRG 871 ==
LOC: ER 13:22 → MEDS 21:53 → ER 21:53 → MEDS 21:58 → ICUE 05-20 00:53
PROVIDERS: Family Medicine; Internal Medicine; Physician Assistant; ADMIT Internal Medicine
PROC: 3E02340 Introduction of Influenza Vaccine into Muscle, Percutaneous Approach (ICD-10-PCS; 2021-05-09)
PROC: 30233N1 Transfusion of Nonautologous Red Blood Cells into Peripheral Vein, Percutaneous Approach (ICD-10-PCS; principal; 2021-05-20)
PROC: 0BH17EZ Insertion of Endotracheal Airway into Trachea, Via Natural or Artificial Opening (ICD-10-PCS; 2021-05-20)
PROC: 5A1935Z Respiratory Ventilation, Less than 24 Consecutive Hours (ICD-10-PCS; 2021-05-20)
PROC: 3E033XZ Introduction of Vasopressor into Peripheral Vein, Percutaneous Approach (ICD-10-PCS; 2021-05-20)
DX: A41.51 Sepsis due to Escherichia coli [E. coli] (principal); R57.8 Other shock; S22.32XA Fracture of one rib, left side, initial encounter for closed fracture; N39.0 Urinary tract infection, site not specified; K92.1 Melena; N17.9 Acute kidney failure, unspecified; R65.20 Severe sepsis without septic shock; E87.6 Hypokalemia; I69.320 Aphasia following cerebral infarction; W01.10XA Fall on same level from slipping, tripping and stumbling with subsequent striking against unspecified object, initial encounter; E86.0 Dehydration; E11.65 Type 2 diabetes mellitus with hyperglycemia; F32.A Depression, unspecified; R13.10 Dysphagia, unspecified; I69.322 Dysarthria following cerebral infarction; E78.5 Hyperlipidemia, unspecified; Z23 Encounter for immunization; I10 Essential (primary) hypertension; Z79.899 Other long term (current) drug therapy; Z79.82 Long term (current) use of aspirin
CPT/HCPCS: 36415; 36430; 36556; 51702; 71045; 71101; 74176; 76770; 80048; 80053; 80069; 81001; 82550; 82947; 83605; 83690; 83880; 84484; 85025; 86850; 86900; 86901; 86920; 86923; 87040; 87077; 87086; 87186; 90686; 92526; 92610; 93005; 93010; 96361; 96365; 97110; 97116; 97161; 97166; 97530; 97535; 99285-25; A9270; C1751; C9113; G0008; G0378; J0330; J0696; J1815; J1956; J2250; J2405; J2704; J3010; J7030; J7040; J7060; P9016

== ENCOUNTER → 2021-08-11 | Outpatient (CLI) | payer MEDICARE, OTHER ==
[~2021-08-11] MED LIST changes: +AMLODIPINE BESY10 MG PO; +Acetaminophen325 M1 PO; +Aspir 8181 MG PO; +CEPH500 PO; +ELIQUIS5 M3 PO; +ESCI20 PO; +LEVOFLOXACIN750 MG PO; +MELA3 PO; +REMERON PO; +SULFAMETHOXAZO1 EAC1 PO; +VISBIOME 112.51 EACH PO; +VITAMIN C125 MG PO
[2021-08-11 16:58] LABS: Source, Urine Catheter
[2021-08-11 17:48] LABS: Hematocrit 33.6 % (33.0-51.0); Hemoglobin 10.7 g/dL (11.5-16.0); Mean Corpuscular HGB 28.8 pg (26.0-34.0); Mean Corpuscular HGB Conc 31.8 g/dL (31.5-36.5); Mean Corpuscular Volume 91 fL (80-100); Mean Platelet Volume 11.6 fL (9.1-12.4); Platelet Count 329 K/mm3 (150-400); RDW Coefficient Variation 13.3 % (11.7-14.2); RDW Standard Deviation 43.5 fL (35.1-46.3); Red Blood Cell Count 3.71 M/mm3 (3.80-5.20); White Blood Cell Count 9.56 K/mm3 (4.00-11.30)
[2021-08-11 18:06] LABS: Appearance, Urine Hazy (Clear); Bilirubin, Urine Neg (Neg); Blood, Urine 2+ (Neg); Glucose Qualitative, Urine 3+ (Neg); Ketones, Urine Neg (Neg); Leukocyte Esterase, Urine 1+ (Neg); Nitrite, Urine Neg (Neg); Protein, Urine 4+ (Neg); Specific Gravity, Urine 1.015 (1.003-1.022); Urobilinogen, Urine NORM (Normal); pH, Urine 6.5 (5.0-8.0)
[2021-08-11 18:24] LABS: Bun/Creatinine Ratio 26.1 (12.0-20.0); Calcium, Blood 8.1 mg/dL (8.5-10.1); Creatinine, Blood 1.57 mg/dL (0.40-1.00)
[2021-08-11 18:27] LABS: Color, Urine Pale Yellow (P-Yellow)
[2021-08-11 18:28] LABS: Red Blood Cells, Urine Rare /hpf (0-2); Squamous Epithelial Cells Few /hpf (Few)
[2021-08-11 18:29] LABS: Bacteria Many /hpf
== END | disposition home or self-care (01) ==
LOC: EDSTATUS 10:41 → LAB UVN 16:56
PROVIDERS: Internal Medicine
DX: J96.01 Acute respiratory failure with hypoxia (principal); K92.2 Gastrointestinal hemorrhage, unspecified; N39.0 Urinary tract infection, site not specified
CPT/HCPCS: 80048; 81001; 85027; 87077; 87086; 87186

== ENCOUNTER 2021-08-23 11:17 | Emergency (ER) | payer MEDICARE, OTHER ==
[~2021-08-23] VITALS: Ht 167.6 cm; Wt 81.7 kg
[~2021-08-23 11:17] MED LIST changes: -CEPH500 PO; -SULFAMETHOXAZO1 EAC1 PO
[2021-08-23] MEDS ORDERED: SULFAMETHOXAZO1 EAC1 PO (11:36)
[2021-08-23 12:05] LABS: BASOPHILS ABSOLUTE AUTO 0.07 K/mm3 (0.00-0.23); BASOPHILS PERCENT AUTO 1 % (0-2); EOSINOPHILS ABSOLUTE AUTO 0.17 K/mm3 (0.00-0.68); EOSINOPHILS PERCENT AUTO 2 % (0-6); Hematocrit 35.7 % (33.0-51.0); Hemoglobin 11.2 g/dL (11.5-16.0); IMMATURE GRAN ABSOLUTE AUTO 0.14 K/mm3 (0.00-0.10); IMMATURE GRAN PERCENT AUTO 2 % (0-1); LYMPHOCYTES ABSOLUTE AUTO 1.56 K/mm3 (0.84-5.20); LYMPHOCYTES PERCENT AUTO 18 % (21-46); MONOCYTES ABSOLUTE AUTO 0.63 K/mm3 (0.16-1.47); MONOCYTES PERCENT AUTO 7 % (4-13); Mean Corpuscular HGB 28.4 pg (26.0-34.0); Mean Corpuscular HGB Conc 31.4 g/dL (31.5-36.5); Mean Corpuscular Volume 90 fL (80-100); Mean Platelet Volume 11.1 fL (9.1-12.4); NEUTROPHILS ABSOLUTE AUTO 6.35 K/mm3 (1.96-9.15); NEUTROPHILS PERCENT AUTO 71 % (41-73); Platelet Count 309 K/mm3 (150-400); RDW Coefficient Variation 13.5 % (11.7-14.2); RDW Standard Deviation 44.9 fL (35.1-46.3); Red Blood Cell Count 3.95 M/mm3 (3.80-5.20); White Blood Cell Count 8.92 K/mm3 (4.00-11.30)
[2021-08-23 12:33] LABS: Alanine Aminotransfer (ALT/SGP 17 U/L (12-78); Albumin, Blood 2.5 g/dL (3.4-5.0); Albumin/Globulin Ratio 0.6 (0.8-1.8); Alk Phos 115 U/L (50-136); Anion Gap 6 mmol/L (6-16); Aspartate Aminotrans (AST/SGOT 10 U/L (12-37); Bilirubin, Total <0.1 mg/dL (0.1-1.0); Blood Urea Nitrogen 49 mg/dL (8-24); Bun/Creatinine Ratio 20.8 (12.0-20.0); CO2, Blood 26 mmol/L (21-32); Calcium, Blood 8.6 mg/dL (8.5-10.1); Chloride, Blood 107 mmol/L (98-108); Creatinine, Blood 2.36 mg/dL (0.40-1.00); Glomerular Filtration Rate 20 (60-); Glucose, Blood 224 mg/dL (70-99); Potassium, Blood 5.2 mmol/L (3.5-5.5); Sodium, Blood 139 mmol/L (136-145); Total Protein, Blood 6.5 g/dL (6.4-8.2)
[2021-08-23] MEDS ORDERED: CEPH500 PO (13:38)
== END 2021-08-23 14:30 | disposition home or self-care (01) ==
LOC: ER 11:17
PROVIDERS: Emergency Medicine
DX: N17.9 Acute kidney failure, unspecified (principal); N39.0 Urinary tract infection, site not specified; R41.0 Disorientation, unspecified; E11.9 Type 2 diabetes mellitus without complications; E78.00 Pure hypercholesterolemia, unspecified; I10 Essential (primary) hypertension; Z79.899 Other long term (current) drug therapy
CPT/HCPCS: 36415; 71045; 80053; 85025; 93005; 93010; 99285-25; J7120

== ENCOUNTER 2022-01-05 19:12 | Emergency (ER) | payer MEDICARE, OTHER ==
[~2022-01-05] VITALS: Ht 167.6 cm; Wt 74.8 kg
[~2022-01-05 19:12] MED LIST changes: +CEPH500 PO; +SULFAMETHOXAZO1 EAC1 PO
== END 2022-01-05 21:00 | disposition home or self-care (01) ==
LOC: ER 19:12
DX: T17.928A Food in respiratory tract, part unspecified causing other injury, initial encounter (principal); X58.XXXA Exposure to other specified factors, initial encounter; E11.9 Type 2 diabetes mellitus without complications; I10 Essential (primary) hypertension; Z79.899 Other long term (current) drug therapy; Z66 Do not resuscitate
CPT/HCPCS: 71045

== ENCOUNTER → 2022-04-19 | Outpatient (CLI) | payer MEDICARE, OTHER | END | disposition home or self-care (01) | LOC: LAB SHORT 12:00 | DX: R82.998 Other abnormal findings in urine (principal) | CPT/HCPCS: 87077; 87086; 87186 ==

== ENCOUNTER → 2022-08-30 | Outpatient (CLI) | payer MEDICARE, OTHER ==
[2022-08-30 09:54] LABS: Source, Urine Clean Catch
[2022-08-30 12:48] LABS: Bilirubin, Urine Neg (Neg); Blood, Urine 1+ (Neg); Glucose Qualitative, Urine Neg (Neg); Ketones, Urine Neg (Neg); Leukocyte Esterase, Urine 3+ (Neg); Nitrite, Urine Neg (Neg); Protein, Urine 4+ (Neg); Urobilinogen, Urine NORM (Normal)
[2022-08-30 13:02] LABS: Appearance, Urine Cloudy (Clear); Color, Urine Yellow (P-Yellow)
[2022-08-30 13:05] LABS: White Blood Cells, Urine TNTC /hpf (0-5)
[2022-08-30 13:06] LABS: Red Blood Cells, Urine 0-2 /hpf (0-2)
[2022-08-30 13:07] LABS: Bacteria Many /hpf; Squamous Epithelial Cells Rare /hpf (Few); Triple Phosphate Crystals Few /hpf
== END | disposition home or self-care (01) ==
LOC: LAB SHORT 09:15 → LAB 09:15 → LAB FUT 08-27 16:10
PROVIDERS: Nurse Practitioner Family
DX: N39.0 Urinary tract infection, site not specified (principal)
CPT/HCPCS: 81001; 87077; 87086; 87186

== ENCOUNTER → 2022-09-17 | Outpatient (CLI) | payer MEDICARE, OTHER ==
[~2022-09-17] MED LIST changes: +AMIT25 PO; +AMLO10 PO; +ARIPIPRAZOLE5 MG PO; +CITALOPRAM HBR10 MG PO; +HYDRA25 PO; +LISI20 PO; +METOPROLOL SUCC25 MG PO; +PANT40 PO
[2022-09-17 19:49] LABS: Bun/Creatinine Ratio 17.3 (12.0-20.0); Calcium, Blood 7.6 mg/dL (8.5-10.1); Creatinine, Blood 1.91 mg/dL (0.40-1.00); Magnesium, Blood 1.5 mg/dL (1.6-2.4); Potassium, Blood 3.8 mmol/L (3.5-5.5)
== END | disposition home or self-care (01) ==
LOC: LAB SHORT 17:45 → LAB 17:45
PROVIDERS: Student in an Organized Health Care Education/Training Program
DX: N18.30 Chronic kidney disease, stage 3 unspecified (principal)
CPT/HCPCS: 80048; 83735

== ENCOUNTER → 2022-12-13 | Outpatient (CLI) | payer MEDICARE, OTHER ==
[~2022-12-13] MED LIST changes: +ONDA4 PO; +Percocet 5-3251 EACH PO
[2022-12-13 10:45] LABS: Source, Urine Clean Catch
[2022-12-13 12:37] LABS: Appearance, Urine Turbid (Clear); Bilirubin, Urine Neg (Neg); Blood, Urine 2+ (Neg); Color, Urine Yellow (P-Yellow); Glucose Qualitative, Urine Neg (Neg); Ketones, Urine Neg (Neg); Leukocyte Esterase, Urine 3+ (Neg); Nitrite, Urine Pos (Neg); Protein, Urine 4+ (Neg); Specific Gravity, Urine 1.015 (1.003-1.022); Urobilinogen, Urine NORM (Normal)
[2022-12-13 13:10] LABS: Bacteria Many /hpf; Mucus Mod (0-Heavy); Squamous Epithelial Cells Mod /hpf (Few); White Blood Cells, Urine 25-50 /hpf (0-5)
== END | disposition home or self-care (01) ==
LOC: LAB 10:28 → LAB SHORT 10:28
PROVIDERS: Family Medicine
DX: R39.9 Unspecified symptoms and signs involving the genitourinary system (principal)
CPT/HCPCS: 81001; 87077; 87086; 87186

== ENCOUNTER 2023-03-03 11:39 | Emergency (ER) | payer MEDICARE, OTHER ==
[~2023-03-03] VITALS: Ht 167.6 cm; Wt 81.7 kg
[~2023-03-03 11:39] MED LIST changes: +ABILIFY5 MG PO; +Amitriptyline H10 MG PO; +REMERON1510 PO; +XARELTO20 M1 PO
[2023-03-03 12:15] LABS: BASOPHILS ABSOLUTE AUTO 0.05 K/mm3 (0.00-0.23); BASOPHILS PERCENT AUTO 0 % (0-2); EOSINOPHILS ABSOLUTE AUTO 0.01 K/mm3 (0.00-0.68); EOSINOPHILS PERCENT AUTO 0 % (0-6); Hematocrit 37.2 % (33.0-51.0); Hemoglobin 11.9 g/dL (11.5-16.0); IMMATURE GRAN ABSOLUTE AUTO 0.09 K/mm3 (0.00-0.10); IMMATURE GRAN PERCENT AUTO 1 % (0-1); LYMPHOCYTES ABSOLUTE AUTO 0.98 K/mm3 (0.84-5.20); LYMPHOCYTES PERCENT AUTO 6 % (21-46); MONOCYTES ABSOLUTE AUTO 0.39 K/mm3 (0.16-1.47); MONOCYTES PERCENT AUTO 2 % (4-13); Mean Corpuscular Volume 91 fL (80-100); Mean Platelet Volume 10.6 fL (9.1-12.4); NEUTROPHILS ABSOLUTE AUTO 14.93 K/mm3 (1.96-9.15); NEUTROPHILS PERCENT AUTO 91 % (41-73); Platelet Count 446 K/mm3 (150-400); RDW Standard Deviation 49.6 fL (35.1-46.3); Red Blood Cell Count 4.11 M/mm3 (3.80-5.20); White Blood Cell Count 16.45 K/mm3 (4.00-11.30)
[2023-03-03 12:36] LABS: Albumin, Blood 3.1 g/dL (3.4-5.0); Albumin/Globulin Ratio 0.6 (0.8-1.8); Bilirubin, Total 0.2 mg/dL (0.1-1.0); Bun/Creatinine Ratio 20.4 (12.0-20.0); Calcium, Blood 9.1 mg/dL (8.5-10.1); Creatinine, Blood 2.84 mg/dL (0.40-1.00); Globulin, Blood 4.8 g/dL (2.2-4.0); Total Protein, Blood 7.9 g/dL (6.4-8.2)
[2023-03-03 13:03] LABS: Appearance, Urine Hazy (Clear); Bilirubin, Urine Neg (Neg); Blood, Urine 5+ (Neg); Color, Urine Red (P-Yellow); Glucose Qualitative, Urine 2+ (Neg); Ketones, Urine Neg (Neg); Leukocyte Esterase, Urine 3+ (Neg); Nitrite, Urine Neg (Neg); Protein, Urine 4+ (Neg); Urobilinogen, Urine NORM (Normal)
[2023-03-03 13:13] LABS: Source, Urine Straight Cath
[2023-03-03 13:16] LABS: Red Blood Cells, Urine 25-50 /hpf (0-2); Squamous Epithelial Cells Not Seen /hpf (Few)
[2023-03-03 13:17] LABS: Bacteria Mod /hpf
[2023-03-03 13:18] LABS: Amorphous Light (0-Heavy); Mucus Light (0-Heavy)
[2023-03-03] MEDS ORDERED: ONDA4ODT MM (13:42)
[2023-03-03] MEDS ORDERED: CEFP200 PO (13:42)
[2023-03-03 16:23] VITALS: BP 139/61
== END 2023-03-03 17:43 | disposition home or self-care (01) ==
LOC: ER 11:39
PROVIDERS: Emergency Medicine
DX: R11.2 Nausea with vomiting, unspecified (principal); E86.0 Dehydration; N39.0 Urinary tract infection, site not specified; N28.9 Disorder of kidney and ureter, unspecified; R53.1 Weakness; I12.9 Hypertensive chronic kidney disease with stage 1 through stage 4 chronic kidney disease, or unspecified chronic kidney disease; E11.22 Type 2 diabetes mellitus with diabetic chronic kidney disease; N18.30 Chronic kidney disease, stage 3 unspecified; I48.91 Unspecified atrial fibrillation; Z86.73 Personal history of transient ischemic attack (TIA), and cerebral infarction without residual deficits; Z79.01 Long term (current) use of anticoagulants; Z79.4 Long term (current) use of insulin; Z79.899 Other long term (current) drug therapy; Z87.891 Personal history of nicotine dependence
CPT/HCPCS: 51701; 71045; 80053; 81001; 83690; 85025; 87086; 93005; 93010; 96365-59; 96375-59; 99285-25; C9113; J0456; J0696; J7030; J7050

== ENCOUNTER 2023-03-30 18:36 | Emergency (ER) | payer MEDICARE, OTHER ==
[~2023-03-30] VITALS: Ht 167.6 cm; Wt 81.7 kg
[~2023-03-30 18:36] MED LIST changes: +CEFP200 PO; +ONDA4ODT MM
[2023-03-30 19:10] LABS: Calcium, Ionized (POC) 1.13 mmol/L (1.10-1.46); Chloride (POC) 117 mmol/L (98-108); Creatinine (POC) 2.9 mg/dL (0.6-1.0); Glucose (ISTAT POC) 219 mg/dL (70-99); Hemoglobin (POC) 9.5 g/dL (12.0-16.0); Potassium (POC) 4.3 mmol/L (3.5-5.5); Sodium (POC) 144 mmol/L (135-148); Total CO2 (POC) 18 mmol/L (21-32)
[2023-03-30 19:12] LABS: BASOPHILS ABSOLUTE AUTO 0.03 K/mm3 (0.00-0.23); BASOPHILS PERCENT AUTO 0 % (0-2); EOSINOPHILS PERCENT AUTO 0 % (0-6); Hematocrit 28.6 % (33.0-51.0); Hemoglobin 9.2 g/dL (11.5-16.0); IMMATURE GRAN ABSOLUTE AUTO 0.12 K/mm3 (0.00-0.10); IMMATURE GRAN PERCENT AUTO 1 % (0-1); LYMPHOCYTES ABSOLUTE AUTO 0.57 K/mm3 (0.84-5.20); LYMPHOCYTES PERCENT AUTO 4 % (21-46); MONOCYTES ABSOLUTE AUTO 0.21 K/mm3 (0.16-1.47); MONOCYTES PERCENT AUTO 1 % (4-13); Mean Corpuscular HGB 29.6 pg (26.0-34.0); Mean Corpuscular HGB Conc 32.2 g/dL (31.5-36.5); Mean Corpuscular Volume 92 fL (80-100); Mean Platelet Volume 10.9 fL (9.1-12.4); NEUTROPHILS ABSOLUTE AUTO 14.42 K/mm3 (1.96-9.15); NEUTROPHILS PERCENT AUTO 94 % (41-73); Platelet Count 355 K/mm3 (150-400); RDW Coefficient Variation 14.1 % (11.7-14.2); RDW Standard Deviation 47.9 fL (35.1-46.3); Red Blood Cell Count 3.11 M/mm3 (3.80-5.20); White Blood Cell Count 15.35 K/mm3 (4.00-11.30)
[2023-03-30 19:25] LABS: Magnesium, Blood 1.4 mg/dL (1.6-2.4)
[2023-03-30 19:28] LABS: International Normalized Ratio 1.07; Prothrombin Time Results 11.2 Sec (9.7-11.5)
[2023-03-30 19:29] LABS: Albumin, Blood 2.3 g/dL (3.4-5.0); Albumin/Globulin Ratio 0.6 (0.8-1.8); Bilirubin, Total 0.3 mg/dL (0.1-1.0); Bun/Creatinine Ratio 21.3 (12.0-20.0); Calcium, Blood 8.1 mg/dL (8.5-10.1); Creatinine, Blood 2.49 mg/dL (0.40-1.00); Globulin, Blood 3.9 g/dL (2.2-4.0); Phosphorus, Blood 3.8 mg/dL (2.5-4.9); Potassium, Blood 4.3 mmol/L (3.5-5.5); Thyroid Stimulating Hormone 1.19 uIU/mL (0.360-4.800); Total Protein, Blood 6.2 g/dL (6.4-8.2)
[2023-03-30 19:38] LABS: Source, Urine Clean Catch
[2023-03-30 19:47] LABS: Appearance, Urine Hazy (Clear); Bilirubin, Urine Neg (Neg); Blood, Urine 2+ (Neg); Color, Urine Yellow (P-Yellow); Glucose Qualitative, Urine 1+ (Neg); Ketones, Urine Neg (Neg); Leukocyte Esterase, Urine 3+ (Neg); Nitrite, Urine Neg (Neg); Protein, Urine 4+ (Neg); Urobilinogen, Urine NORM (Normal)
[2023-03-30 20:25] VITALS: BP 190/83
[2023-03-30 20:32] LABS: Bacteria Many /hpf; Granular Casts 0-2 /lpf (0); Hyaline Casts 0-2 /lpf (0-2); Squamous Epithelial Cells Mod /hpf (Few); Transitional Epithelial Cells Few /hpf (0-Rare); White Blood Cells, Urine 50-100 /hpf (0-5)
== END 2023-03-30 21:49 | disposition short-term general hospital (02) ==
LOC: ER 18:36
PROVIDERS: Emergency Medicine
DX: K92.0 Hematemesis (principal); I95.9 Hypotension, unspecified; R40.0 Somnolence; E11.22 Type 2 diabetes mellitus with diabetic chronic kidney disease; I12.9 Hypertensive chronic kidney disease with stage 1 through stage 4 chronic kidney disease, or unspecified chronic kidney disease; N18.30 Chronic kidney disease, stage 3 unspecified; I48.91 Unspecified atrial fibrillation; F32.A Depression, unspecified; Z79.01 Long term (current) use of anticoagulants; Z79.899 Other long term (current) drug therapy; Z87.891 Personal history of nicotine dependence; Z86.73 Personal history of transient ischemic attack (TIA), and cerebral infarction without residual deficits; Z79.4 Long term (current) use of insulin
CPT/HCPCS: 36415; 36430; 51701; 71045; 80047; 80053; 81001; 83605; 83735; 84100; 84443; 85014; 85025; 85610; 85730; 86850; 86900; 86901; 86923; 87077; 87086; 87186; 93005; 93010; 96360; 99285-25; C1751; J7030; P9016

== ENCOUNTER 2023-05-06 09:39 | Inpatient (IN) | payer MEDICARE, OTHER ==
[~2023-05-06] VITALS: Ht 167.6 cm; Wt 62.5 kg
[2023-05-06 10:28] LABS: Source, Urine Fem Cath
[2023-05-06 10:39] LABS: Appearance, Urine Cloudy (Clear); Bilirubin, Urine Neg (Neg); Blood, Urine 1+ (Neg); Color, Urine Yellow (P-Yellow); Glucose Qualitative, Urine 1+ (Neg); Ketones, Urine Neg (Neg); Leukocyte Esterase, Urine 2+ (Neg); Nitrite, Urine Neg (Neg); Protein, Urine 4+ (Neg); Specific Gravity, Urine 1.015 (1.003-1.022); Urobilinogen, Urine NORM (Normal)
[2023-05-06 10:42] LABS: BASOPHILS ABSOLUTE AUTO 0.05 K/mm3 (0.00-0.23); BASOPHILS PERCENT AUTO 0 % (0-2); EOSINOPHILS PERCENT AUTO 0 % (0-6); Hematocrit 31.1 % (33.0-51.0); IMMATURE GRAN ABSOLUTE AUTO 0.26 K/mm3 (0.00-0.10); IMMATURE GRAN PERCENT AUTO 1 % (0-1); LYMPHOCYTES ABSOLUTE AUTO 1.06 K/mm3 (0.84-5.20); LYMPHOCYTES PERCENT AUTO 4 % (21-46); MONOCYTES ABSOLUTE AUTO 0.97 K/mm3 (0.16-1.47); MONOCYTES PERCENT AUTO 4 % (4-13); Mean Corpuscular HGB 28.9 pg (26.0-34.0); Mean Corpuscular HGB Conc 32.2 g/dL (31.5-36.5); Mean Corpuscular Volume 90 fL (80-100); Mean Platelet Volume 10.7 fL (9.1-12.4); NEUTROPHILS ABSOLUTE AUTO 24.71 K/mm3 (1.96-9.15); NEUTROPHILS PERCENT AUTO 91 % (41-73); Platelet Count 452 K/mm3 (150-400); RDW Coefficient Variation 13.5 % (11.7-14.2); RDW Standard Deviation 44.4 fL (35.1-46.3); Red Blood Cell Count 3.46 M/mm3 (3.80-5.20); White Blood Cell Count 27.05 K/mm3 (4.00-11.30)
[2023-05-06 10:46] LABS: Bacteria Many /hpf; Squamous Epithelial Cells Few /hpf (Few); White Blood Cells, Urine 25-50 /hpf (0-5)
[2023-05-06 11:05] LABS: Albumin, Blood 2.3 g/dL (3.4-5.0); Albumin/Globulin Ratio 0.5 (0.8-1.8); Bilirubin, Total 0.2 mg/dL (0.1-1.0); Calcium, Blood 8.5 mg/dL (8.5-10.1); Creatinine, Blood 2.32 mg/dL (0.40-1.00); Globulin, Blood 4.3 g/dL (2.2-4.0); Potassium, Blood 5.1 mmol/L (3.5-5.5); Total Protein, Blood 6.6 g/dL (6.4-8.2)
[2023-05-06 11:09] LABS: BASOPHILS PERCENT MAN 0 % (0-2); EOSINOPHILS PERCENT MAN 0 % (0-6); LYMPHOCYTES ABSOLUTE MAN 0.54 K/mm3 (0.84-5.20); LYMPHOCYTES PERCENT MAN 2 % (21-46); MONOCYTES ABSOLUTE MAN 0.27 K/mm3 (0.16-1.47); MONOCYTES PERCENT MAN 1 % (4-13); NEUTROPHILS ABSOLUTE MAN 26.23 K/mm3 (1.96-9.15); SEG NEUTROPHILS PERCENT MAN 97 % (41-73); TOTAL CELLS COUNTED 100
[2023-05-06 11:20] LABS: Influenza A, PCR NEGATIVE (NEGATIVE); Influenza B, PCR NEGATIVE (NEGATIVE); Resp Syncytial Virus, PCR NEGATIVE (NEGATIVE); SARS-Cov-2 (COVID-19) PCR, MMC NEGATIVE (NEGATIVE)
[2023-05-06 16:29] VITALS: BP 171/57
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
[2023-05-06 19:59] VITALS: BP 156/59
[2023-05-07] VITALS (19 sets, daily range): BP systolic 134–171; BP diastolic 47–159
[2023-05-07 04:59] LABS: BASOPHILS ABSOLUTE AUTO 0.07 K/mm3 (0.00-0.23); BASOPHILS PERCENT AUTO 0 % (0-2); EOSINOPHILS ABSOLUTE AUTO 0.01 K/mm3 (0.00-0.68); EOSINOPHILS PERCENT AUTO 0 % (0-6); Hematocrit 24.6 % (33.0-51.0); Hemoglobin 7.7 g/dL (11.5-16.0); IMMATURE GRAN ABSOLUTE AUTO 0.46 K/mm3 (0.00-0.10); IMMATURE GRAN PERCENT AUTO 2 % (0-1); LYMPHOCYTES ABSOLUTE AUTO 1.72 K/mm3 (0.84-5.20); LYMPHOCYTES PERCENT AUTO 6 % (21-46); MONOCYTES ABSOLUTE AUTO 1.59 K/mm3 (0.16-1.47); MONOCYTES PERCENT AUTO 6 % (4-13); Mean Corpuscular HGB 28.6 pg (26.0-34.0); Mean Corpuscular HGB Conc 31.3 g/dL (31.5-36.5); Mean Corpuscular Volume 91 fL (80-100); Mean Platelet Volume 11.1 fL (9.1-12.4); NEUTROPHILS ABSOLUTE AUTO 24.95 K/mm3 (1.96-9.15); NEUTROPHILS PERCENT AUTO 87 % (41-73); Platelet Count 346 K/mm3 (150-400); RDW Coefficient Variation 13.7 % (11.7-14.2); RDW Standard Deviation 45.2 fL (35.1-46.3); Red Blood Cell Count 2.69 M/mm3 (3.80-5.20)
[2023-05-07 06:13] LABS: Calcium, Blood 8.3 mg/dL (8.5-10.1); Creatinine, Blood 2.45 mg/dL (0.40-1.00); Potassium, Blood 4.5 mmol/L (3.5-5.5)
[2023-05-07 08:34] LABS: Percent Saturation 13.7 % (15.0-50.0)
--- NOTE | 2023-05-07 10:18 | NUR ---
SPOKE TO DR. CORONA. PT OK TO HAVE WATER ONLY UNTIL NOON THEN NPO FOR EGD PROCEDURE THIS AFTERNOON. PT UPDATED WITH POC.
[2023-05-07] MEDS ORDERED: PANTOPRAZOLE SO40 M2 PO (10:27)
[2023-05-07] MEDS ORDERED: CELEXA10 MG PO (10:29)
[2023-05-07] MEDS ORDERED: ATOR40TA PO (10:30)
[2023-05-07 12:18] LABS: Hematocrit 22.4 % (33.0-51.0)
--- NOTE | 2023-05-07 14:20 | NUR ---
DAY SURGERY RN ARRIVED TO TAKE PT BLOOD PRDUCT ARRIVED. PT TO BE TRANSFUSED IN DAY SURGERY. BLOOD CONSENT WAS SIGNED. BLOOD PRODUCT SENT WITH RN.
[2023-05-07] MEDS ORDERED: AMIT25 PO (14:34)
[2023-05-07] MEDS ORDERED: MAGNESIUM OXID500 MG PO (14:35)
[2023-05-07] MEDS ORDERED: Percocet 5-3251 EACH PO (14:36)
[2023-05-07] MEDS ORDERED: ONDA4ODT SL (14:36)
--- NOTE | 2023-05-07 14:37 | NUR ---
PT UNABLE TO RECALL HOME MEDICATIONS FROM [facility] AND SHE DID NOT BRING A LIST. CALLED [facility] IN HER CONTACT LIST AND THEY WERE ABLE TO FAX HER HOME MEDICATIONS LIST. MED RECONCILIATION COMPLETED.
[2023-05-07] MEDS ORDERED: ALBU90OI INH (14:40)
--- NOTE | 2023-05-07 15:15 | NUR ---
Arrived by camilo to Day Surgery. History, Chart, Medications and Allergies reviewed before start of procedure. Patient confirms NPO status and agrees with scheduled surgery. Pre-Op teaching done. Pt verbalizes understanding. Unit infusing.
--- NOTE | 2023-05-07 15:27 | NUR ---
05/07/23 1527 Sukumar Guevara HISTORY, CHART, MEDICATIONS AND ALLERGIES REVIEWED BEFORE START OF PROCEDURE. PATIENT CONFIRMS NPO STATUS AND AGREES WITH SCHEDULED PROCEDURE. 3-LEAD EKG REVIEWED WITH PHYSICIAN PRIOR TO START OF PROCEDURE. MONITOR INTACT WITH CONTINUOUS PULSE OXIMETRY,CAPNOGRAPHY, 3-LEAD EKG, INTERMITTENT BP. SUPPLEMENTAL O2 TO BE TITRATED THROUGHOUT PROCEDURE TO MAINTAIN O2 SATURATION ABOVE 90%. PATIENT DETERMINED TO BE ASA APPROPRIATE FOR PROPOFOL SEDATION PRIOR TO START OF PROCEDURE BY DR. CORONA. Bite Block Placed.
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
--- NOTE | 2023-05-07 18:37 | NUR ---
SHIFT SUMMARY: PT A/O X 3 BEDREST, PLEASANT AND COOPERATIVE. PT HAD 1 UNIT OF PRBC'S TRANSFUSED TODAY AND TOLERATED WELL. EGD DONE AND PT STARTED ON CARAFATE. PT TOLERATED WELL. PT HAD POOR APPETITE AT DINNER AND ONLY ATE A FEW BITES OF FRUIT SALAD. PT REPORTS MID UPPER ABD PAIN THAT IS TOLERABLE. BP ELEVATED BUT PT DENIES CP, PRESSURE OR SOB.
[2023-05-08 03:35] VITALS: BP 113/43
[2023-05-08 06:19] LABS: Albumin, Blood 1.8 g/dL (3.4-5.0); Anion Gap 4 mmol/L (6-16); Blood Urea Nitrogen 53 mg/dL (8-24); Bun/Creatinine Ratio 26.2 (12.0-20.0); CO2, Blood 25 mmol/L (21-32); Calcium, Blood 7.5 mg/dL (8.5-10.1); Chloride, Blood 115 mmol/L (98-108); Creatinine, Blood 2.02 mg/dL (0.40-1.00); Glomerular Filtration Rate 26 (60-); Glucose, Blood 112 mg/dL (70-99); Phosphorus, Blood 2.8 mg/dL (2.5-4.9); Potassium, Blood 4.4 mmol/L (3.5-5.5); Sodium, Blood 144 mmol/L (136-145)
[2023-05-08 06:21] LABS: Hemoglobin 7.4 g/dL (11.5-16.0); Mean Platelet Volume 10.8 fL (9.1-12.4); Platelet Count 272 K/mm3 (150-400); White Blood Cell Count 15.02 K/mm3 (4.00-11.30)
[2023-05-08 06:22] LABS: Mean Corpuscular HGB 26.1 pg (26.0-34.0); Mean Corpuscular HGB Conc 32.2 g/dL (31.5-36.5); Red Blood Cell Count 2.83 M/mm3 (3.80-5.20)
[2023-05-08 06:48] LABS: Mean Corpuscular Volume 81 fL (80-100)
[2023-05-08 07:55] VITALS: BP 160/70
[2023-05-08 14:24] LABS: Hemoglobin 8.1 g/dL (11.5-16.0)
[2023-05-08 14:28] LABS: Hematocrit 25.8 % (33.0-51.0)
[2023-05-08 16:07] VITALS: BP 165/42
[2023-05-08 19:20] VITALS: BP 136/53
--- NOTE | 2023-05-08 19:31 | NUR ---
SHIFT SUMMARY- PT IS A/O, PLESANT AND COOPERATIVE. SHE IS EATING AND DRINKING WELL. SHE SLEPT INTERMITENTLY THROUGHOUT THIS SHIFT. HER BED IS IN THE LOW POSITON AND CALL LIGHT IS WITIN REACH.
[2023-05-09 02:23] VITALS: BP 160/60
--- NOTE | 2023-05-09 05:52 | NUR ---
SHIFT SUMMARY: NO ACUTE EVENTS. DENIED PAIN. STOOL SPECIMEN SENT. SLEPT MOST OF THE SHIFT.
[2023-05-09 07:50] VITALS: BP 169/61
[2023-05-09 10:32] LABS: BASOPHILS ABSOLUTE AUTO 0.12 K/mm3 (0.00-0.23); BASOPHILS PERCENT AUTO 1 % (0-2); EOSINOPHILS PERCENT AUTO 2 % (0-6); Hematocrit 27.4 % (33.0-51.0); Hemoglobin 8.8 g/dL (11.5-16.0); IMMATURE GRAN PERCENT AUTO 5 % (0-1); LYMPHOCYTES ABSOLUTE AUTO 2.04 K/mm3 (0.84-5.20); LYMPHOCYTES PERCENT AUTO 17 % (21-46); MONOCYTES ABSOLUTE AUTO 0.76 K/mm3 (0.16-1.47); MONOCYTES PERCENT AUTO 7 % (4-13); Mean Corpuscular HGB Conc 32.1 g/dL (31.5-36.5); Mean Corpuscular Volume 81 fL (80-100); NEUTROPHILS ABSOLUTE AUTO 7.98 K/mm3 (1.96-9.15); NEUTROPHILS PERCENT AUTO 68 % (41-73); RDW Coefficient Variation 23.5 % (11.7-14.2); RDW Standard Deviation 64.3 fL (35.1-46.3); Red Blood Cell Count 3.38 M/mm3 (3.80-5.20)
[2023-05-09 10:33] LABS: Mean Platelet Volume 11.2 fL (9.1-12.4); Platelet Count 278 K/mm3 (150-400)
[2023-05-09 10:46] LABS: Albumin, Blood 2.2 g/dL (3.4-5.0); Anion Gap 5 mmol/L (6-16); Blood Urea Nitrogen 38 mg/dL (8-24); Bun/Creatinine Ratio 20.3 (12.0-20.0); CO2, Blood 26 mmol/L (21-32); Calcium, Blood 7.9 mg/dL (8.5-10.1); Chloride, Blood 110 mmol/L (98-108); Creatinine, Blood 1.87 mg/dL (0.40-1.00); Glomerular Filtration Rate 28 (60-); Glucose, Blood 172 mg/dL (70-99); Phosphorus, Blood 2.7 mg/dL (2.5-4.9); Potassium, Blood 4.5 mmol/L (3.5-5.5); Sodium, Blood 141 mmol/L (136-145)
[2023-05-09 10:51] LABS: Stool Occult Blood Guaiac 1 Neg (Neg)
[2023-05-09 11:42] VITALS: BP 135/44
[2023-05-09 15:45] VITALS: BP 131/49
--- NOTE | 2023-05-09 18:28 | NUR ---
SHIFT SUMMARY NO ACUTE CHANGES THIS SHIFT. PT AOX4 AND TRANSFERS WITH WHEELCHAIR AND GB. SHE WAS UP IN THE CHAIR FOR DINNER AND TOLERATED IT WELL. NO COMPLAINTS OF P/N/V/D/CP THIS SHIFT. SHE HAS BEEN PLEASANTLY WATCHING TELEVISION ALL DAY. CALL LIGHT WITHIN REACH, BED IN THE LOWEST POSITION. WILL REPORT TO ONCOMING NURSE.
[2023-05-09 20:01] VITALS: BP 133/51
[2023-05-10 04:09] VITALS: BP 170/72
--- NOTE | 2023-05-10 06:33 | NUR ---
SHIFT SUMMARY: NO ACUTE EVENTS. DENIED PAIN. INCONTINENT OF B&B, ATTENDS IN PLACE. ON CONTACT ISOLATION FOR ESBL IN URINE. SLEPT ALL NIGHT.
[2023-05-10 07:39] VITALS: BP 145/53
[2023-05-10] MEDS ORDERED: VISBIOME 112.51 EACH PO (14:04)
--- NOTE | 2023-05-10 15:19 | NUR ---
DISCHARGE: PT D/C @ 1500 VIA WHEELCHAIR VAN. IV REMOVED FROM RAC W/O COMPLICATIONS. IV IN R. WRIST REMAINS INTACT DUE TO OUTPT INFUSIONS FOR NEXT 3 DAYS. WRAPPED AND SECURE. CARE WILL ARRIVE TO PT HOUSE PRIOR TO TRANSPORT TO HELP PT GET READY FOR APTS. INFUSION TIMES SCHEDULED AND GIVEN TO PT. MEDICATIONS FAXED TO [facility] IN [place]. PT AWARE OF ESBL PRECAUTIONS. MEDICAL PHONE NUMBER PROVIDED TO PT FOR ANY FOLLOW-UP QUESTIONS.
== END 2023-05-10 15:10 | disposition home health service (06) | DRG 871 ==
LOC: ER 09:39 → MEDS 12:55 → ENPENDDIS 05-10 11:28 → MEDS 05-10 15:10
PROVIDERS: Emergency Medicine; ADMIT Family Medicine
PROC: 3E03329 Introduction of Other Anti-infective into Peripheral Vein, Percutaneous Approach (ICD-10-PCS; principal; 2023-05-06)
PROC: 30233N1 Transfusion of Nonautologous Red Blood Cells into Peripheral Vein, Percutaneous Approach (ICD-10-PCS; 2023-05-06)
PROC: 0DJ08ZZ Inspection of Upper Intestinal Tract, Via Natural or Artificial Opening Endoscopic (ICD-10-PCS; 2023-05-07)
DX: A41.9 Sepsis, unspecified organism (principal); K22.11 Ulcer of esophagus with bleeding; N39.0 Urinary tract infection, site not specified; E87.0 Hyperosmolality and hypernatremia; N18.4 Chronic kidney disease, stage 4 (severe); G93.49 Other encephalopathy; I69.351 Hemiplegia and hemiparesis following cerebral infarction affecting right dominant side; D62 Acute posthemorrhagic anemia; N17.9 Acute kidney failure, unspecified; Z51.5 Encounter for palliative care; Z66 Do not resuscitate; D63.1 Anemia in chronic kidney disease; B96.20 Unspecified Escherichia coli [E. coli] as the cause of diseases classified elsewhere; I48.91 Unspecified atrial fibrillation; Z20.822 Contact with and (suspected) exposure to COVID-19; K44.9 Diaphragmatic hernia without obstruction or gangrene; D50.9 Iron deficiency anemia, unspecified; B95.2 Enterococcus as the cause of diseases classified elsewhere; F32.A Depression, unspecified; I12.9 Hypertensive chronic kidney disease with stage 1 through stage 4 chronic kidney disease, or unspecified chronic kidney disease; Z79.01 Long term (current) use of anticoagulants; Z79.899 Other long term (current) drug therapy; Z79.4 Long term (current) use of insulin; Z87.891 Personal history of nicotine dependence; Z87.440 Personal history of urinary (tract) infections; Z98.890 Other specified postprocedural states; Z79.51 Long term (current) use of inhaled steroids
CPT/HCPCS: 0241U; 36415; 36430; 71045; 80048; 80053; 80069; 81001; 82272; 82607; 82728; 82746; 82947; 83540; 83550; 83605; 85014; 85018; 85025; 86850; 86900; 86901; 86923; 87040; 87077; 87086; 87186; 96361; 96365; 96367; 96375; 97110; 97162; 97165; 97530; 97535; 99285-25; A9270; J0696; J1815; J2185; J2405; J2704; J2916; J7030; J7050; J7120; P9016

== ENCOUNTER 2023-05-11 01:45 | Day surgery (SDC) | payer MEDICARE, OTHER ==
[~2023-05-11 01:45] MED LIST changes: +ALBU90OI INH; +CELEXA10 MG PO; +MAGNESIUM OXID500 MG PO; +ONDA4ODT SL; +PANTOPRAZOLE SO40 M2 PO
[2023-05-11 08:42] VITALS: BP 137/60
== END 2023-05-11 08:58 | disposition home or self-care (01) ==
LOC: ATC 01:45
DX: N39.0 Urinary tract infection, site not specified (principal); Z16.12 Extended spectrum beta lactamase (ESBL) resistance; N18.4 Chronic kidney disease, stage 4 (severe); D63.1 Anemia in chronic kidney disease; I12.9 Hypertensive chronic kidney disease with stage 1 through stage 4 chronic kidney disease, or unspecified chronic kidney disease; Z66 Do not resuscitate
CPT/HCPCS: 96365; J1335

== ENCOUNTER 2023-05-12 01:01 | Day surgery (SDC) | payer MEDICARE, OTHER ==
[2023-05-12 08:45] VITALS: BP 137/66
== END 2023-05-12 09:56 | disposition home or self-care (01) ==
LOC: ATC 01:01
DX: N39.0 Urinary tract infection, site not specified (principal); Z66 Do not resuscitate; Z16.12 Extended spectrum beta lactamase (ESBL) resistance; I12.9 Hypertensive chronic kidney disease with stage 1 through stage 4 chronic kidney disease, or unspecified chronic kidney disease; E11.22 Type 2 diabetes mellitus with diabetic chronic kidney disease; N18.4 Chronic kidney disease, stage 4 (severe); I48.91 Unspecified atrial fibrillation; Z86.73 Personal history of transient ischemic attack (TIA), and cerebral infarction without residual deficits; B96.89 Other specified bacterial agents as the cause of diseases classified elsewhere
CPT/HCPCS: 96374; J1335

== ENCOUNTER 2023-05-13 00:08 | Day surgery (SDC) | payer MEDICARE, OTHER ==
[2023-05-13 09:58] VITALS: BP 135/63
== END 2023-05-13 10:20 | disposition home or self-care (01) ==
LOC: ATC 00:08
DX: N39.0 Urinary tract infection, site not specified (principal); Z16.12 Extended spectrum beta lactamase (ESBL) resistance; N18.4 Chronic kidney disease, stage 4 (severe); D63.1 Anemia in chronic kidney disease; I12.9 Hypertensive chronic kidney disease with stage 1 through stage 4 chronic kidney disease, or unspecified chronic kidney disease; Z66 Do not resuscitate
CPT/HCPCS: 96365; J1335

== ENCOUNTER 2023-06-20 11:12 | Emergency (ER) | payer MEDICARE, OTHER ==
[~2023-06-20] VITALS: Ht 152.4 cm; Wt 61.2 kg
[2023-06-20 14:40] LABS: Chloride (POC) 112 mmol/L (98-108); Creatinine (POC) 2.7 mg/dL (0.6-1.0); Glucose (ISTAT POC) 230 mg/dL (70-99); Hemoglobin (POC) 12.6 g/dL (12.0-16.0); Sodium (POC) 142 mmol/L (135-148); Total CO2 (POC) 21 mmol/L (21-32)
[2023-06-20 15:16] LABS: BASOPHILS ABSOLUTE AUTO 0.07 K/mm3 (0.00-0.23); BASOPHILS PERCENT AUTO 1 % (0-2); EOSINOPHILS ABSOLUTE AUTO 0.47 K/mm3 (0.00-0.68); EOSINOPHILS PERCENT AUTO 5 % (0-6); Hematocrit 32.6 % (33.0-51.0); Hemoglobin 10.2 g/dL (11.5-16.0); IMMATURE GRAN ABSOLUTE AUTO 0.13 K/mm3 (0.00-0.10); IMMATURE GRAN PERCENT AUTO 1 % (0-1); LYMPHOCYTES ABSOLUTE AUTO 2.42 K/mm3 (0.84-5.20); LYMPHOCYTES PERCENT AUTO 23 % (21-46); MONOCYTES ABSOLUTE AUTO 0.57 K/mm3 (0.16-1.47); MONOCYTES PERCENT AUTO 6 % (4-13); Mean Corpuscular HGB 27.4 pg (26.0-34.0); Mean Corpuscular HGB Conc 31.3 g/dL (31.5-36.5); Mean Corpuscular Volume 88 fL (80-100); Mean Platelet Volume 10.7 fL (9.1-12.4); NEUTROPHILS ABSOLUTE AUTO 6.79 K/mm3 (1.96-9.15); NEUTROPHILS PERCENT AUTO 65 % (41-73); Platelet Count 447 K/mm3 (150-400); RDW Coefficient Variation 20.1 % (11.7-14.2); RDW Standard Deviation 65.5 fL (35.1-46.3); Red Blood Cell Count 3.72 M/mm3 (3.80-5.20); White Blood Cell Count 10.45 K/mm3 (4.00-11.30)
[2023-06-20 16:16] LABS: Alanine Aminotransfer (ALT/SGP 11 U/L (12-78); Albumin, Blood 2.8 g/dL (3.4-5.0); Albumin/Globulin Ratio 0.6 (0.8-1.8); Alk Phos 115 U/L (50-136); Anion Gap 10 mmol/L (6-16); Aspartate Aminotrans (AST/SGOT 11 U/L (12-37); Bilirubin, Total <0.1 mg/dL (0.1-1.0); Blood Urea Nitrogen 48 mg/dL (8-24); Bun/Creatinine Ratio 19.4 (12.0-20.0); CO2, Blood 19 mmol/L (21-32); Calcium, Blood 8.6 mg/dL (8.5-10.1); Chloride, Blood 113 mmol/L (98-108); Creatinine, Blood 2.48 mg/dL (0.40-1.00); Globulin, Blood 4.9 g/dL (2.2-4.0); Glomerular Filtration Rate 20 (60-); Glucose, Blood 190 mg/dL (70-99); Potassium, Blood 4.9 mmol/L (3.5-5.5); Sodium, Blood 142 mmol/L (136-145); Total Protein, Blood 7.7 g/dL (6.4-8.2)
[2023-06-20 16:39] LABS: Source, Urine Clean Catch
[2023-06-20 16:48] LABS: Appearance, Urine Hazy (Clear); Bilirubin, Urine Neg (Neg); Blood, Urine 2+ (Neg); Color, Urine Yellow (P-Yellow); Glucose Qualitative, Urine 1+ (Neg); Ketones, Urine Neg (Neg); Leukocyte Esterase, Urine 3+ (Neg); Nitrite, Urine Neg (Neg); Protein, Urine 4+ (Neg); Urobilinogen, Urine NORM (Normal)
[2023-06-20 17:33] LABS: Bacteria Many /hpf; Hyaline Casts 0-2 /lpf (0-2); Squamous Epithelial Cells Few /hpf (Few); Transitional Epithelial Cells Few /hpf (0-Rare); White Blood Cells, Urine 25-50 /hpf (0-5); Yeast/Fungi Urine Rare /hpf
[2023-06-20 18:52] VITALS: BP 124/50
== END 2023-06-20 19:24 | disposition home or self-care (01) ==
LOC: ER 11:12
PROVIDERS: Physician Assistant; Student in an Organized Health Care Education/Training Program
DX: E86.0 Dehydration (principal); N17.9 Acute kidney failure, unspecified; E11.22 Type 2 diabetes mellitus with diabetic chronic kidney disease; I12.9 Hypertensive chronic kidney disease with stage 1 through stage 4 chronic kidney disease, or unspecified chronic kidney disease; N18.30 Chronic kidney disease, stage 3 unspecified; I48.91 Unspecified atrial fibrillation; F32.A Depression, unspecified; I69.398 Other sequelae of cerebral infarction; Z79.899 Other long term (current) drug therapy; Z79.4 Long term (current) use of insulin
CPT/HCPCS: 76770; 80047; 80053; 81001; 85014; 85025; 87086; 93005; 93010; 96360; 96361; 99284-25; J7030

== ENCOUNTER → 2023-07-05 | Outpatient (CLI) | payer MEDICARE, OTHER | END | disposition home or self-care (01) | LOC: LAB 13:10 → LAB SHORT 13:10 | DX: R30.0 Dysuria (principal) | CPT/HCPCS: 87086 ==

== ENCOUNTER → 2023-07-19 | Outpatient (CLI) | payer MEDICARE, OTHER ==
[~2023-07-19] MED LIST changes: +ABILIFY MYCITE15 M2 PO; -ABILIFY5 MG PO; +AMITRIPTYLINE H25 MG PO; +AMOX500 PO; +LOKELMA10 GM PO; +Vitamin D1000 UNI1 PO
== END ==
LOC: LAB 16:17 → LAB SHORT 16:17
DX: N39.0 Urinary tract infection, site not specified (principal)
CPT/HCPCS: 87077; 87086; 87186

== ENCOUNTER 2023-07-20 09:57 | Inpatient (IN) | payer MEDICARE, OTHER ==
[~2023-07-20] VITALS: Ht 165.1 cm; Wt 59.0 kg
[~2023-07-20 09:57] MED LIST changes: -AMITRIPTYLINE H25 MG PO; -AMOX500 PO; -LOKELMA10 GM PO; -Vitamin D1000 UNI1 PO
[2023-07-20 10:53] LABS: Source, Urine Straight Cath
[2023-07-20 10:56] LABS: Appearance, Urine Cloudy (Clear); Bilirubin, Urine Neg (Neg); Blood, Urine 5+ (Neg); Color, Urine Yellow (P-Yellow); Glucose Qualitative, Urine Neg (Neg); Ketones, Urine Neg (Neg); Leukocyte Esterase, Urine 3+ (Neg); Nitrite, Urine Neg (Neg); Protein, Urine 4+ (Neg); Urobilinogen, Urine NORM (Normal)
[2023-07-20 11:12] LABS: Bacteria Mod /hpf; Mucus Light (0-Heavy); Red Blood Cells, Urine 25-50 /hpf (0-2); Squamous Epithelial Cells Not Seen /hpf (Few); White Blood Cells, Urine 50-100 /hpf (0-5)
[2023-07-20 11:16] LABS: BASOPHILS ABSOLUTE AUTO 0.05 K/mm3 (0.00-0.23); BASOPHILS PERCENT AUTO 0 % (0-2); EOSINOPHILS ABSOLUTE AUTO 0.01 K/mm3 (0.00-0.68); EOSINOPHILS PERCENT AUTO 0 % (0-6); Hematocrit 34.7 % (33.0-51.0); Hemoglobin 10.7 g/dL (11.5-16.0); IMMATURE GRAN ABSOLUTE AUTO 0.19 K/mm3 (0.00-0.10); IMMATURE GRAN PERCENT AUTO 1 % (0-1); LYMPHOCYTES ABSOLUTE AUTO 1.02 K/mm3 (0.84-5.20); LYMPHOCYTES PERCENT AUTO 6 % (21-46); MONOCYTES ABSOLUTE AUTO 0.34 K/mm3 (0.16-1.47); MONOCYTES PERCENT AUTO 2 % (4-13); Mean Corpuscular HGB 27.7 pg (26.0-34.0); Mean Corpuscular HGB Conc 30.8 g/dL (31.5-36.5); Mean Corpuscular Volume 90 fL (80-100); Mean Platelet Volume 10.9 fL (9.1-12.4); NEUTROPHILS ABSOLUTE AUTO 16.23 K/mm3 (1.96-9.15); NEUTROPHILS PERCENT AUTO 91 % (41-73); Platelet Count 433 K/mm3 (150-400); RDW Coefficient Variation 17.5 % (11.7-14.2); Red Blood Cell Count 3.86 M/mm3 (3.80-5.20); White Blood Cell Count 17.84 K/mm3 (4.00-11.30)
[2023-07-20 11:21] LABS: Albumin, Blood 2.9 g/dL (3.4-5.0); Albumin/Globulin Ratio 0.6 (0.8-1.8); Bilirubin, Total 0.3 mg/dL (0.1-1.0); Bun/Creatinine Ratio 33.3 (12.0-20.0); Calcium, Blood 8.3 mg/dL (8.5-10.1); Creatinine, Blood 2.46 mg/dL (0.40-1.00); Globulin, Blood 4.7 g/dL (2.2-4.0); Potassium, Blood 5.3 mmol/L (3.5-5.5); Total Protein, Blood 7.6 g/dL (6.4-8.2)
[2023-07-20] MEDS ORDERED: HYDRA25 PO (11:30)
[2023-07-20 11:36] LABS: U Amphetamine Screen Not Detected; U Barbituate Screen Not Detected; U Benzodiazapine Screen Not Detected; U Buprenorphine Screen Not Detected; U Cannabinoids Screen Not Detected; U Cocaine Screen Not Detected; U Methadone Screen Not Detected; U Methamphetamine Screen Not Detected; U Opiates Screen Not Detected; U Oxycodone Screen Not Detected; U Phencyclidine Screen Not Detected
[2023-07-20 15:21] VITALS: BP 137/63
--- NOTE | 2023-07-20 17:33 | NUR ---
NEW ER ADMIT Patient alert & oriented x2-3, very tired, unable to answer Hx assessment questions or Med rec. Patient incontinent of bowel/bladder. IV Merrem scheduled BID. CBGs WNL, no Humalog SSI needed at dinner. Vitals stable. Will continue plan of care.
[2023-07-20 19:40] VITALS: BP 179/56
[2023-07-20] MEDS ORDERED: AMITRIPTYLINE H25 MG PO (19:52)
[2023-07-20] MEDS ORDERED: ELIQUIS5 M3 PO (19:57)
[2023-07-20] MEDS ORDERED: LOKELMA10 GM PO (19:58)
[2023-07-21 03:02] VITALS: BP 164/64
[2023-07-21 05:50] LABS: Hematocrit 29.7 % (33.0-51.0); Hemoglobin 9.2 g/dL (11.5-16.0); Mean Corpuscular HGB 27.8 pg (26.0-34.0); Mean Corpuscular Volume 90 fL (80-100); Mean Platelet Volume 10.4 fL (9.1-12.4); Platelet Count 372 K/mm3 (150-400); RDW Coefficient Variation 17.6 % (11.7-14.2); RDW Standard Deviation 55.1 fL (35.1-46.3); Red Blood Cell Count 3.31 M/mm3 (3.80-5.20); White Blood Cell Count 15.94 K/mm3 (4.00-11.30)
[2023-07-21 06:20] LABS: Albumin, Blood 2.5 g/dL (3.4-5.0); Anion Gap 7 mmol/L (6-16); Blood Urea Nitrogen 77 mg/dL (8-24); Bun/Creatinine Ratio 33.2 (12.0-20.0); CO2, Blood 18 mmol/L (21-32); Calcium, Blood 8.4 mg/dL (8.5-10.1); Chloride, Blood 117 mmol/L (98-108); Creatinine, Blood 2.32 mg/dL (0.40-1.00); Glomerular Filtration Rate 22 (60-); Glucose, Blood 113 mg/dL (70-99); Magnesium, Blood 1.7 mg/dL (1.6-2.4); Phosphorus, Blood 4.1 mg/dL (2.5-4.9); Potassium, Blood 4.6 mmol/L (3.5-5.5); Sodium, Blood 142 mmol/L (136-145)
--- NOTE | 2023-07-21 07:20 | NUR ---
SHIFT SUMMARY NOC PT A/O X 2-3. PLEASANT AND COOPERATIVE WITH CARE, BUT LETHARGIC AND DOES NOT SPEAK VERY OFTEN, BUT SPEAKS VERY SOFTLY WHEN THEY DO. PT HAS SOME R SIDED DEFICITS FROM 2 PRIOR CVA'S. PT HAS MULTIPLE BRUISES ON RUE. PT PER REPORT IS IMMOBILE @ BASELINE DUE TO CVA'S. PT HAS NOT ATTEMPTED TO GET OOB SO FAR DURING SHIFT AND HAS JUST SLEPT. PT IN ON CONTACT ISOLATION FOR ESBL IN URINE. PT WAS ABLE TO TAKE RX WHOLE IN APPLESAUCE WITH NO ISSUES, AND DRINK WATER WITHOUT ISSUES WELL. PT IS CURRENTLY RESTING WITH BED IN LOWEST POSITION, AND CALL LIGHT WITHIN REACH.
[2023-07-21 07:50] VITALS: BP 113/56
[2023-07-21 14:54] VITALS: BP 136/106
[2023-07-21 19:35] VITALS: BP 144/63
--- NOTE | 2023-07-21 20:01 | NUR ---
SHIFT SUMMARY: TREY IS A&OX3-4. VSS WITH BP NOTED TO BE TRENDING UP. IV TO R WRIST PATENT. SHE IS TOLERATING PO INTAKE WELL, ABLE TO FEED HERSELF, AND TOOK HER MEDICATIONS WHOLE IN APPLESAUCE WITHOUT DIFFICULTY. ATTENDS IN PLACE, PUREWICK IN PLACE. PT IS ABLE TO TURN AND REPOSITION HERSELF IN BED AND USES THE BED CONTROLS INDEPENDENTLY. SHE IS LYING IN BED WITH THE CALL LIGHT IN REACH. REPORT WAS GIVEN TO METALL[facility] LABORATORY ASSISTANT RN.
[2023-07-22 03:46] VITALS: BP 147/60
[2023-07-22 05:03] LABS: Hematocrit 26.9 % (33.0-51.0); Hemoglobin 8.6 g/dL (11.5-16.0); Mean Corpuscular Volume 88 fL (80-100); Mean Platelet Volume 9.9 fL (9.1-12.4); Platelet Count 357 K/mm3 (150-400); RDW Coefficient Variation 17.6 % (11.7-14.2); RDW Standard Deviation 52.5 fL (35.1-46.3); Red Blood Cell Count 3.07 M/mm3 (3.80-5.20); White Blood Cell Count 10.98 K/mm3 (4.00-11.30)
[2023-07-22 05:38] LABS: Albumin, Blood 2.3 g/dL (3.4-5.0); Anion Gap 7 mmol/L (6-16); Blood Urea Nitrogen 68 mg/dL (8-24); Bun/Creatinine Ratio 29.8 (12.0-20.0); CO2, Blood 19 mmol/L (21-32); Calcium, Blood 7.8 mg/dL (8.5-10.1); Chloride, Blood 114 mmol/L (98-108); Creatinine, Blood 2.28 mg/dL (0.40-1.00); Glomerular Filtration Rate 22 (60-); Glucose, Blood 107 mg/dL (70-99); Magnesium, Blood 1.5 mg/dL (1.6-2.4); Phosphorus, Blood 3.7 mg/dL (2.5-4.9); Potassium, Blood 4.5 mmol/L (3.5-5.5); Sodium, Blood 140 mmol/L (136-145)
[2023-07-22 07:41] VITALS: BP 121/53
--- NOTE | 2023-07-22 08:04 | NUR ---
SHIFT SUMMARY PT IS A&OX3, OFF ON DATE. PT ANSWERS QUESTIONS APPROPRIATLEY WHEN GIVEN SUFFICIENT TIME TO RESPOND. VSS ON RA. DENIES PAIN. ON AN ADA, MECHANICAL SOFT DIET. TAKES PILLS ONE AT A TIME WHOLE IN APPLESAUCE WITH NO ISSUES. NOOB THIS SHIFT. REPOSITIONS HERSELF IN BED, USES BED CONTROLS INDEPENDENTLY. INCONTINENT, BRIEF AND WOMENS EXTERNAL CATHETER IN PLACE. DRAINING ADEQUATE AMOUNTS OF CLOUDY, YELLOW URINE. NO BM THIS SHIFT. BED IN LOWEST POSITION, CALL LIGHT WITHIN REACH. FIRE SAFETY CHECKS COMPLETED
[2023-07-22] MEDS ORDERED: Vitamin D1000 UNI1 PO (11:34)
[2023-07-22] MEDS ORDERED: AMOX500 PO (11:34)
[2023-07-22 14:43] VITALS: BP 140/63
== END 2023-07-22 17:25 | disposition home health service (06) | DRG 689 ==
LOC: ER 09:57 → MEDS 12:56
PROVIDERS: Emergency Medicine; ADMIT Internal Medicine
DX: N39.0 Urinary tract infection, site not specified (principal); G92.8 Other toxic encephalopathy; N18.4 Chronic kidney disease, stage 4 (severe); N17.9 Acute kidney failure, unspecified; I69.351 Hemiplegia and hemiparesis following cerebral infarction affecting right dominant side; I48.91 Unspecified atrial fibrillation; Z66 Do not resuscitate; I12.9 Hypertensive chronic kidney disease with stage 1 through stage 4 chronic kidney disease, or unspecified chronic kidney disease; E11.22 Type 2 diabetes mellitus with diabetic chronic kidney disease; K80.20 Calculus of gallbladder without cholecystitis without obstruction; Q51.9 Congenital malformation of uterus and cervix, unspecified; Z87.891 Personal history of nicotine dependence
CPT/HCPCS: 36415; 74177; 80053; 80069; 81001; 82947; 83605; 83735; 84484; 85025; 85027; 87086; 93005; 93010; 94760; 96365-59; 96375; 99285-25; A9270; J0295; J0696; J1815; J2185; J3475; J7030; J7050; Q9967

== ENCOUNTER → 2023-08-08 | Outpatient (CLI) | payer MEDICARE, OTHER ==
[~2023-08-08] MED LIST changes: +AMITRIPTYLINE H25 MG PO; +AMOX500 PO; +LOKELMA10 GM PO; +Vitamin D1000 UNI1 PO
[2023-08-08 18:47] LABS: Source, Urine Clean Catch
[2023-08-08 18:58] LABS: Appearance, Urine Cloudy (Clear); Bilirubin, Urine Neg (Neg); Blood, Urine Neg (Neg); Color, Urine Yellow (P-Yellow); Glucose Qualitative, Urine Neg (Neg); Ketones, Urine Neg (Neg); Leukocyte Esterase, Urine 3+ (Neg); Nitrite, Urine Neg (Neg); Protein, Urine 3+ (Neg); Specific Gravity, Urine 1.015 (1.003-1.022); Urobilinogen, Urine NORM (Normal)
[2023-08-08 19:10] LABS: Bacteria Few /hpf; Squamous Epithelial Cells Few /hpf (Few)
[2023-08-08 19:11] LABS: Yeast/Fungi Urine Many /hpf
== END ==
LOC: LAB 14:00 → LAB SHORT 14:00
PROVIDERS: Student in an Organized Health Care Education/Training Program
DX: N39.0 Urinary tract infection, site not specified (principal)
CPT/HCPCS: 81001; 87086

== ENCOUNTER → 2023-09-06 | Outpatient (CLI) | payer MEDICARE, OTHER ==
[~2023-09-06] MED LIST changes: +CALCITRIOL0.25 MC4 PO; +PANT20 PO; -PANTOPRAZOLE SO40 M2 PO; +Prinivil10 MG PO
[2023-09-06 10:41] LABS: Source, Urine Clean Catch
[2023-09-06 13:05] LABS: Appearance, Urine Cloudy (Clear); Bilirubin, Urine Neg (Neg); Blood, Urine 2+ (Neg); Color, Urine Yellow (P-Yellow); Glucose Qualitative, Urine Neg (Neg); Ketones, Urine Neg (Neg); Leukocyte Esterase, Urine 3+ (Neg); Nitrite, Urine Neg (Neg); Protein, Urine 4+ (Neg); Specific Gravity, Urine 1.005 (1.003-1.022); Urobilinogen, Urine NORM (Normal); pH, Urine 6.5 (5.0-8.0)
[2023-09-06 13:19] LABS: Bacteria Many /hpf; Squamous Epithelial Cells Few /hpf (Few); White Blood Cells, Urine TNTC /hpf (0-5)
== END | disposition home or self-care (01) ==
LOC: LAB 10:38 → LAB SHORT 10:38
PROVIDERS: Student in an Organized Health Care Education/Training Program
DX: N39.0 Urinary tract infection, site not specified (principal)
CPT/HCPCS: 81001; 87086

== ENCOUNTER 2024-01-18 13:30 | Emergency (ER) | payer MEDICARE, OTHER ==
[~2024-01-18] VITALS: Ht 167.6 cm; Wt 59.0 kg
[~2024-01-18 13:30] MED LIST changes: +ABILIFY MYCITE10 M2 PO; +AMOCLA500 PO; +ATORVASTATIN CA80 M1 PO; +CALC.25 PO; +CITALOPRAM HBR30 M1 PO; +MIRALAX17 GM PO; +MIRT15 PO; +OMEP20ER PO; +SUCR1 PO; +Ventolin/Proventil INH; +Zestril30 MG PO
[2024-01-18] MEDS ORDERED: Ondansetron HCl 2 MG / ML 2ML Vial IV ONE (14:00)
[2024-01-18 14:09] LABS: BASOPHILS ABSOLUTE AUTO 0.03 K/mm3 (0.00-0.23); BASOPHILS PERCENT AUTO 0 % (0-2); EOSINOPHILS PERCENT AUTO 0 % (0-6); Hematocrit 39.5 % (33.0-51.0); Hemoglobin 12.5 g/dL (11.5-16.0); IMMATURE GRAN PERCENT AUTO 1 % (0-1); LYMPHOCYTES ABSOLUTE AUTO 0.68 K/mm3 (0.84-5.20); LYMPHOCYTES PERCENT AUTO 5 % (21-46); MONOCYTES ABSOLUTE AUTO 0.35 K/mm3 (0.16-1.47); MONOCYTES PERCENT AUTO 2 % (4-13); Mean Corpuscular HGB 26.7 pg (26.0-34.0); Mean Corpuscular HGB Conc 31.6 g/dL (31.5-36.5); Mean Corpuscular Volume 84 fL (80-100); Mean Platelet Volume 11.2 fL (9.1-12.4); NEUTROPHILS ABSOLUTE AUTO 13.93 K/mm3 (1.96-9.15); NEUTROPHILS PERCENT AUTO 92 % (41-73); Platelet Count 469 K/mm3 (150-400); RDW Coefficient Variation 18.9 % (11.7-14.2); RDW Standard Deviation 57.5 fL (35.1-46.3); Red Blood Cell Count 4.69 M/mm3 (3.80-5.20); White Blood Cell Count 15.09 K/mm3 (4.00-11.30)
[2024-01-18 14:19] LABS: International Normalized Ratio 0.95; Prothrombin Time Results 10.2 Sec (9.7-11.5)
[2024-01-18 14:20] LABS: Albumin/Globulin Ratio 0.7 (0.8-1.8); Bilirubin, Total 0.4 mg/dL (0.1-1.0); Bun/Creatinine Ratio 20.8 (12.0-20.0); Calcium, Blood 9.1 mg/dL (8.5-10.1); Creatinine, Blood 2.21 mg/dL (0.40-1.00); Globulin, Blood 4.5 g/dL (2.2-4.0); Total Protein, Blood 7.5 g/dL (6.4-8.2)
[2024-01-18] MEDS ORDERED: Ondansetron HCl 2 MG / ML 2ML Vial IV PRN (14:25)
[2024-01-18] MEDS ORDERED: NS 1,000 ML IV ONE (14:25)
[2024-01-18] MEDS ORDERED: Pantoprazole Sodium 40 MG Injection IV ONE (14:25)
[2024-01-18] MEDS ORDERED: Ondansetron Odt8 MG MM (16:27)
[2024-01-18 21:00] VITALS: BP 153/67
== END 2024-01-18 21:23 | disposition home or self-care (01) ==
LOC: ER 13:30
PROVIDERS: Emergency Medicine
DX: K92.0 Hematemesis (principal); I77.6 Arteritis, unspecified; E11.22 Type 2 diabetes mellitus with diabetic chronic kidney disease; I12.9 Hypertensive chronic kidney disease with stage 1 through stage 4 chronic kidney disease, or unspecified chronic kidney disease; N18.30 Chronic kidney disease, stage 3 unspecified; Z86.73 Personal history of transient ischemic attack (TIA), and cerebral infarction without residual deficits; Z79.4 Long term (current) use of insulin; Z79.899 Other long term (current) drug therapy
CPT/HCPCS: 80053; 85025; 85610; 85730; 93005; 93010; 96361; 96374; 96375; 96376; 99285-25; C9113; J2405; J7030

== ENCOUNTER 2024-01-21 10:54 | Emergency (ER) | payer MEDICARE, OTHER ==
[~2024-01-21] VITALS: Ht 154.9 cm; Wt 63.5 kg
[~2024-01-21 10:54] MED LIST changes: +Ondansetron Odt8 MG MM
[2024-01-21 11:44] LABS: BASOPHILS ABSOLUTE AUTO 0.06 K/mm3 (0.00-0.23); BASOPHILS PERCENT AUTO 0 % (0-2); EOSINOPHILS ABSOLUTE AUTO 0.02 K/mm3 (0.00-0.68); EOSINOPHILS PERCENT AUTO 0 % (0-6); Hematocrit 30.8 % (33.0-51.0); Hemoglobin 9.6 g/dL (11.5-16.0); IMMATURE GRAN ABSOLUTE AUTO 0.31 K/mm3 (0.00-0.10); IMMATURE GRAN PERCENT AUTO 2 % (0-1); LYMPHOCYTES ABSOLUTE AUTO 1.66 K/mm3 (0.84-5.20); LYMPHOCYTES PERCENT AUTO 11 % (21-46); MONOCYTES ABSOLUTE AUTO 0.58 K/mm3 (0.16-1.47); MONOCYTES PERCENT AUTO 4 % (4-13); Mean Corpuscular HGB 27.4 pg (26.0-34.0); Mean Corpuscular HGB Conc 31.2 g/dL (31.5-36.5); Mean Corpuscular Volume 88 fL (80-100); Mean Platelet Volume 11.8 fL (9.1-12.4); NEUTROPHILS PERCENT AUTO 82 % (41-73); Platelet Count 383 K/mm3 (150-400); RDW Coefficient Variation 19.9 % (11.7-14.2); RDW Standard Deviation 62.7 fL (35.1-46.3); Red Blood Cell Count 3.51 M/mm3 (3.80-5.20); White Blood Cell Count 14.63 K/mm3 (4.00-11.30)
[2024-01-21 11:47] LABS: Source, Urine Straight Cath
[2024-01-21 11:50] LABS: Appearance, Urine Hazy (Clear); Bilirubin, Urine Neg (Neg); Blood, Urine Neg (Neg); Color, Urine Yellow (P-Yellow); Glucose Qualitative, Urine 2+ (Neg); Ketones, Urine Neg (Neg); Leukocyte Esterase, Urine Neg (Neg); Nitrite, Urine Neg (Neg); Protein, Urine 4+ (Neg); Urobilinogen, Urine NORM (Normal)
[2024-01-21 12:05] LABS: Amorphous Heavy (0-Heavy); Bacteria Rare /hpf; Mucus Light (0-Heavy); Red Blood Cells, Urine 0-2 /hpf (0-2); Squamous Epithelial Cells Rare /hpf (Few); White Blood Cells, Urine Not Seen /hpf (0-5)
[2024-01-21 12:09] LABS: Albumin, Blood 2.9 g/dL (3.4-5.0); Albumin/Globulin Ratio 0.7 (0.8-1.8); Bilirubin, Total 0.2 mg/dL (0.1-1.0); Bun/Creatinine Ratio 32.8 (12.0-20.0); Calcium, Blood 9.4 mg/dL (8.5-10.1); Creatinine, Blood 2.35 mg/dL (0.40-1.00); Globulin, Blood 4.1 g/dL (2.2-4.0); Magnesium, Blood 1.5 mg/dL (1.6-2.4); Potassium, Blood 4.3 mmol/L (3.5-5.5); Thyroid Stimulating Hormone 2.24 uIU/mL (0.360-4.800)
[2024-01-21 12:14] LABS: U Amphetamine Screen Not Detected; U Barbituate Screen Not Detected; U Benzodiazapine Screen Not Detected; U Buprenorphine Screen Not Detected; U Cannabinoids Screen Not Detected; U Cocaine Screen Not Detected; U Methadone Screen Not Detected; U Methamphetamine Screen Not Detected; U Opiates Screen Not Detected; U Oxycodone Screen Not Detected; U Phencyclidine Screen Not Detected
[2024-01-21] MEDS ORDERED: Cefdinir 300 MG Cap PO ONE (14:50)
[2024-01-21] MEDS ORDERED: CEFD300 PO (15:20)
[2024-01-21 17:05] VITALS: BP 178/69
== END 2024-01-21 17:05 | disposition other institution (70) ==
LOC: ER 10:54
PROVIDERS: Emergency Medicine
DX: J18.9 Pneumonia, unspecified organism (principal); E11.22 Type 2 diabetes mellitus with diabetic chronic kidney disease; I12.9 Hypertensive chronic kidney disease with stage 1 through stage 4 chronic kidney disease, or unspecified chronic kidney disease; N18.30 Chronic kidney disease, stage 3 unspecified; I48.91 Unspecified atrial fibrillation; Z86.73 Personal history of transient ischemic attack (TIA), and cerebral infarction without residual deficits; Z79.4 Long term (current) use of insulin; Z79.899 Other long term (current) drug therapy
CPT/HCPCS: 71045; 80053; 81001; 83735; 84443; 85025; 93005; 93010; 99285-25; A9270

== ENCOUNTER 2024-04-28 12:36 | Emergency (ER) | payer MEDICARE, OTHER ==
[~2024-04-28] VITALS: Ht 165.1 cm; Wt 59.0 kg
[~2024-04-28 12:36] MED LIST changes: +CEFD300 PO
[2024-04-28] MEDS ORDERED: Pantoprazole Sodium 40 MG Injection IV ONE (12:45)
[2024-04-28 13:27] LABS: BASOPHILS ABSOLUTE AUTO 0.05 K/mm3 (0.00-0.23); BASOPHILS PERCENT AUTO 0 % (0-2); EOSINOPHILS PERCENT AUTO 0 % (0-6); Hematocrit 29.3 % (33.0-51.0); IMMATURE GRAN ABSOLUTE AUTO 0.19 K/mm3 (0.00-0.10); IMMATURE GRAN PERCENT AUTO 1 % (0-1); LYMPHOCYTES ABSOLUTE AUTO 1.57 K/mm3 (0.84-5.20); LYMPHOCYTES PERCENT AUTO 6 % (21-46); MONOCYTES ABSOLUTE AUTO 1.34 K/mm3 (0.16-1.47); MONOCYTES PERCENT AUTO 5 % (4-13); Mean Corpuscular HGB 23.8 pg (26.0-34.0); Mean Corpuscular HGB Conc 30.7 g/dL (31.5-36.5); Mean Corpuscular Volume 78 fL (80-100); Mean Platelet Volume 11.2 fL (9.1-12.4); NEUTROPHILS ABSOLUTE AUTO 24.42 K/mm3 (1.96-9.15); NEUTROPHILS PERCENT AUTO 89 % (41-73); NRBC ABSOLUTE 0.05 K/mm3 (0.00-0.02); NRBC Auto 0.2 /100 WBC (0.0-0.2); Platelet Count 487 K/mm3 (150-400); RDW Coefficient Variation 16.3 % (11.7-14.2); RDW Standard Deviation 45.8 fL (35.1-46.3); Red Blood Cell Count 3.78 M/mm3 (3.80-5.20); White Blood Cell Count 27.57 K/mm3 (4.00-11.30)
[2024-04-28] MEDS ORDERED: ELIQUIS2.5 MG PO (13:41)
[2024-04-28 13:46] LABS: Albumin, Blood 2.8 g/dL (3.4-5.0); Albumin/Globulin Ratio 0.7 (0.8-1.8); Bilirubin, Total 0.2 mg/dL (0.1-1.0); Bun/Creatinine Ratio 39.7 (12.0-20.0); Calcium, Blood 9.2 mg/dL (8.5-10.1); Creatinine, Blood 2.82 mg/dL (0.40-1.00); Globulin, Blood 4.3 g/dL (2.2-4.0); Potassium, Blood 4.2 mmol/L (3.5-5.5); Total Protein, Blood 7.1 g/dL (6.4-8.2)
[2024-04-28 14:10] LABS: International Normalized Ratio 0.95; Prothrombin Time Results 10.2 Sec (9.7-11.5)
[2024-04-28] MEDS ORDERED: CefTRIAXone Sodium 1,000 MG in NS 100 ML IV ONE (14:25)
[2024-04-28] MEDS ORDERED: Lactated Ringer's 1,000 ML IV SCH (14:25)
[2024-04-28] MEDS ORDERED: Pantoprazole Sodium 40 MG in NS 50 ML IV SCH (14:40)
[2024-04-28 18:29] LABS: Source, Urine Clean Catch
[2024-04-28 18:32] LABS: Appearance, Urine Hazy (Clear); Bilirubin, Urine Neg (Neg); Blood, Urine 3+ (Neg); Glucose Qualitative, Urine Neg (Neg); Ketones, Urine Neg (Neg); Leukocyte Esterase, Urine 3+ (Neg); Nitrite, Urine Neg (Neg); Protein, Urine 4+ (Neg); Urobilinogen, Urine NORM (Normal)
[2024-04-28 19:00] LABS: Color, Urine Pale Yellow (P-Yellow)
[2024-04-28 19:01] LABS: Amorphous Mod (0-Heavy); Bacteria Many /hpf; Squamous Epithelial Cells Few /hpf (Few); Transitional Epithelial Cells Rare /hpf (0-Rare); White Blood Cells, Urine TNTC /hpf (0-5)
[2024-04-28 20:30] VITALS: BP 163/62
== END 2024-04-28 20:50 | disposition short-term general hospital (02) ==
LOC: ER 12:36
PROVIDERS: Student in an Organized Health Care Education/Training Program
DX: K92.0 Hematemesis (principal); K20.90 Esophagitis, unspecified without bleeding; K21.9 Gastro-esophageal reflux disease without esophagitis; E11.22 Type 2 diabetes mellitus with diabetic chronic kidney disease; I12.9 Hypertensive chronic kidney disease with stage 1 through stage 4 chronic kidney disease, or unspecified chronic kidney disease; N18.30 Chronic kidney disease, stage 3 unspecified; E78.5 Hyperlipidemia, unspecified; I48.91 Unspecified atrial fibrillation; Z86.73 Personal history of transient ischemic attack (TIA), and cerebral infarction without residual deficits; Z79.4 Long term (current) use of insulin; Z79.899 Other long term (current) drug therapy
CPT/HCPCS: 71045; 71275; 80053; 81001; 83605; 84484; 85025; 85610; 85730; 86850; 86900; 86901; 87077; 87086; 87186; 93005; 93010; 96365-59; 96366-59; 96367-59; 96376-59; 99285-25; J0696; J2470; J7120; Q9967

== ENCOUNTER 2024-09-17 15:47 | Emergency (ER) | payer MEDICARE, OTHER ==
[~2024-09-17] VITALS: Ht 167.6 cm; Wt 59.9 kg
[2024-09-17 18:14] LABS: BASOPHILS ABSOLUTE AUTO 0.05 K/mm3 (0.00-0.23); BASOPHILS PERCENT AUTO 0 % (0-2); EOSINOPHILS ABSOLUTE AUTO 0.01 K/mm3 (0.00-0.68); EOSINOPHILS PERCENT AUTO 0 % (0-6); Hematocrit 32.9 % (33.0-51.0); Hemoglobin 10.3 g/dL (11.5-16.0); IMMATURE GRAN ABSOLUTE AUTO 0.21 K/mm3 (0.00-0.10); IMMATURE GRAN PERCENT AUTO 1 % (0-1); LYMPHOCYTES ABSOLUTE AUTO 1.33 K/mm3 (0.84-5.20); LYMPHOCYTES PERCENT AUTO 8 % (21-46); MONOCYTES ABSOLUTE AUTO 0.76 K/mm3 (0.16-1.47); MONOCYTES PERCENT AUTO 5 % (4-13); Mean Corpuscular HGB 26.1 pg (26.0-34.0); Mean Corpuscular HGB Conc 31.3 g/dL (31.5-36.5); Mean Corpuscular Volume 84 fL (80-100); Mean Platelet Volume 10.2 fL (9.1-12.4); NEUTROPHILS ABSOLUTE AUTO 13.68 K/mm3 (1.96-9.15); NEUTROPHILS PERCENT AUTO 85 % (41-73); Platelet Count 393 K/mm3 (150-400); RDW Coefficient Variation 16.7 % (11.7-14.2); RDW Standard Deviation 51.1 fL (35.1-46.3); Red Blood Cell Count 3.94 M/mm3 (3.80-5.20); White Blood Cell Count 16.04 K/mm3 (4.00-11.30)
[2024-09-17 18:35] LABS: Albumin, Blood 2.8 g/dL (3.4-5.0); Albumin/Globulin Ratio 0.6 (0.8-1.8); Bilirubin, Total 0.2 mg/dL (0.1-1.0); Bun/Creatinine Ratio 21.4 (12.0-20.0); Calcium, Blood 9.3 mg/dL (8.5-10.1); Creatinine, Blood 2.38 mg/dL (0.40-1.00); Potassium, Blood 4.1 mmol/L (3.5-5.5); Total Protein, Blood 7.8 g/dL (6.4-8.2)
[2024-09-17] MEDS ORDERED: Acetaminophen 500 MG Tab PO ONE (19:30)
[2024-09-17] MEDS ORDERED: Docusate Sodium 100 MG Cap PO ONE (19:30)
[2024-09-17 19:59] VITALS: BP 181/71
== END 2024-09-17 20:00 | disposition home or self-care (01) ==
LOC: ER 15:47
PROVIDERS: Student in an Organized Health Care Education/Training Program
DX: R10.9 Unspecified abdominal pain (principal); D72.829 Elevated white blood cell count, unspecified; N18.9 Chronic kidney disease, unspecified; D64.9 Anemia, unspecified
CPT/HCPCS: 71046; 74176; 80053; 83690; 84484; 85025; A9270

== ENCOUNTER → 2024-09-17 | Outpatient (CLI) | payer MEDICARE, OTHER ==
[~2024-09-17] MED LIST changes: +ELIQUIS2.5 MG PO
[2024-09-17 13:47] LABS: BASOPHILS ABSOLUTE AUTO 0.06 K/mm3 (0.00-0.23); BASOPHILS PERCENT AUTO 0 % (0-2); EOSINOPHILS ABSOLUTE AUTO 0.01 K/mm3 (0.00-0.68); EOSINOPHILS PERCENT AUTO 0 % (0-6); Hematocrit 33.7 % (33.0-51.0); Hemoglobin 10.6 g/dL (11.5-16.0); IMMATURE GRAN ABSOLUTE AUTO 0.16 K/mm3 (0.00-0.10); IMMATURE GRAN PERCENT AUTO 1 % (0-1); LYMPHOCYTES ABSOLUTE AUTO 1.36 K/mm3 (0.84-5.20); LYMPHOCYTES PERCENT AUTO 8 % (21-46); MONOCYTES ABSOLUTE AUTO 0.87 K/mm3 (0.16-1.47); MONOCYTES PERCENT AUTO 5 % (4-13); Mean Corpuscular HGB 25.8 pg (26.0-34.0); Mean Corpuscular HGB Conc 31.5 g/dL (31.5-36.5); Mean Corpuscular Volume 82 fL (80-100); Mean Platelet Volume 10.5 fL (9.1-12.4); NEUTROPHILS ABSOLUTE AUTO 15.06 K/mm3 (1.96-9.15); NEUTROPHILS PERCENT AUTO 86 % (41-73); Platelet Count 447 K/mm3 (150-400); RDW Coefficient Variation 16.8 % (11.7-14.2); RDW Standard Deviation 49.3 fL (35.1-46.3); Red Blood Cell Count 4.11 M/mm3 (3.80-5.20); White Blood Cell Count 17.52 K/mm3 (4.00-11.30)
[2024-09-17 14:08] LABS: Albumin/Globulin Ratio 0.6 (0.8-1.8); Bilirubin, Total 0.3 mg/dL (0.1-1.0); Bun/Creatinine Ratio 19.6 (12.0-20.0); Calcium, Blood 9.3 mg/dL (8.5-10.1); Creatinine, Blood 2.65 mg/dL (0.40-1.00)
== END ==
LOC: LAB SHORT 13:37 → LAB 13:37
PROVIDERS: Emergency Medicine
DX: R11.2 Nausea with vomiting, unspecified (principal); R10.9 Unspecified abdominal pain; N39.0 Urinary tract infection, site not specified
CPT/HCPCS: 80053; 83690; 85025; 87086

== ENCOUNTER 2025-03-10 22:26 | Inpatient (IN) | payer MEDICARE, OTHER ==
[~2025-03-10] VITALS: Ht 170.2 cm; Wt 68.0 kg
[2025-03-11 00:29] LABS: BASOPHILS ABSOLUTE AUTO 0.11 K/mm3 (0.00-0.23); BASOPHILS PERCENT AUTO 0 % (0-2); EOSINOPHILS ABSOLUTE AUTO 0.00 K/mm3 (0.00-0.68); EOSINOPHILS PERCENT AUTO 0 % (0-6); Hematocrit 40.6 % (33.0-51.0); Hemoglobin 12.7 g/dL (11.5-16.0); IMMATURE GRAN ABSOLUTE AUTO 0.43 K/mm3 (0.00-0.10); IMMATURE GRAN PERCENT AUTO 2 % (0-1); LYMPHOCYTES ABSOLUTE AUTO 1.68 K/mm3 (0.84-5.20); LYMPHOCYTES PERCENT AUTO 6 % (21-46); MONOCYTES ABSOLUTE AUTO 2.53 K/mm3 (0.16-1.47); MONOCYTES PERCENT AUTO 9 % (4-13); Mean Corpuscular HGB Conc 31.3 g/dL (31.5-36.5); Mean Corpuscular Volume 95 fL (80-100); NEUTROPHILS ABSOLUTE AUTO 23.68 K/mm3 (1.96-9.15); NEUTROPHILS PERCENT AUTO 83 % (41-73); NRBC ABSOLUTE 0.00 K/mm3 (0.00-0.02); NRBC Auto 0.0 /100 WBC (0.0-0.2); Platelet Count 260 K/mm3 (150-400); RDW Coefficient Variation 20.5 % (11.7-14.2); RDW Standard Deviation 71.0 fL (35.1-46.3)
[2025-03-11 00:36] LABS: Source, Urine Straight Cath
[2025-03-11 00:47] LABS: Alanine Aminotransfer (ALT/SGP 9.0 U/L (12-78); Albumin, Blood 2.0 g/dL (3.4-5.0); Albumin/Globulin Ratio 0.4 (0.8-1.8); Anion Gap 10.0 mmol/L (3-11); Aspartate Aminotrans (AST/SGOT 14.0 U/L (12-37); Bilirubin, Total 0.3 mg/dL (0.1-1.0); Blood Urea Nitrogen 37.0 mg/dL (8-24); CO2, Blood 19.0 mmol/L (21-32); Calcium, Blood 7.9 mg/dL (8.5-10.1); Chloride, Blood 105.0 mmol/L (98-108); Creatinine, Blood 2.72 mg/dL (0.40-1.00); Globulin, Blood 4.7 g/dL (2.2-4.0); Glucose, Blood 157.0 mg/dL (70-99); Potassium, Blood 4.3 mmol/L (3.5-5.5); Sodium, Blood 130.0 mmol/L (136-145); Total Protein, Blood 6.7 g/dL (6.4-8.2)
[2025-03-11 01:35] LABS: Bilirubin, Urine Neg (Neg); Color, Urine Yellow (P-Yellow); Glucose Qualitative, Urine 1+ (Neg); Ketones, Urine Neg (Neg); Leukocyte Esterase, Urine 3+ (Neg); Protein, Urine 4+ (Neg); Specific Gravity, Urine 1.020 (1.003-1.022); Urobilinogen, Urine NORM (Normal)
[2025-03-11] MEDS ORDERED: CefTRIAXone Sodium 2,000 MG in NS 100 ML IV ONE (01:35)
[2025-03-11 01:56] LABS: Red Blood Cells, Urine 0-2 /hpf (0-2); White Blood Cells, Urine 25-50 /hpf (0-5)
[2025-03-11] MEDS ORDERED: NS 1,000 ML IV SCH ×3 (02:15→09:00)
[2025-03-11] MEDS ORDERED: Ondansetron HCl 2 MG / ML 2ML Vial IV PRN (02:20)
[2025-03-11] MEDS ORDERED: MetroNIDAZOLE 500MG/NS 100 ml 100 ML IV ONE (02:25)
[2025-03-11 04:27] VITALS: BP 131/72
--- NOTE | 2025-03-11 05:02 | NUR ---
SHIFT SUMMARY/ADMIT NOTE ADMITTED THIS SHIFT FOR CHOLECYSTITIS. HANDOFF RECEIVED FROM DECISION SUPPORT ANALYST LETA. DNR CODE. PLAN IS FOR SURGICAL CONSULT [facility] TO ASSESS THE PATIENT THIS MORNING. DR. BLACK WAS CONTACTED BY THE ER. PUREWICK IN PLACE PT IS INCONTINENT. PT HAS AMS, BARELY ONE WORD RESPONSES TO MY QUESTIONS. SHE IS EXTREMELY WEAK. SHE IS NPO AT THIS TIME. IV FLUID INFUSING ORDERED. IV ANTIB RX ARE SCHEDULED. Q 6 CBG'S,
[2025-03-11] MEDS ORDERED: Insulin Regular 100 UNIT/ML 10ML Vial SC SCH (06:00)
[2025-03-11 07:33] VITALS: BP 128/48
[2025-03-11] MEDS ORDERED: MetroNIDAZOLE 500MG/NS 100 ml 100 ML IV SCH (08:00)
[2025-03-11 08:16] LABS: BASOPHILS ABSOLUTE AUTO 0.08 K/mm3 (0.00-0.23); BASOPHILS PERCENT AUTO 0 % (0-2); EOSINOPHILS ABSOLUTE AUTO 0.01 K/mm3 (0.00-0.68); EOSINOPHILS PERCENT AUTO 0 % (0-6); Hematocrit 34.9 % (33.0-51.0); Hemoglobin 11.2 g/dL (11.5-16.0); IMMATURE GRAN ABSOLUTE AUTO 0.70 K/mm3 (0.00-0.10); IMMATURE GRAN PERCENT AUTO 2 % (0-1); LYMPHOCYTES ABSOLUTE AUTO 1.25 K/mm3 (0.84-5.20); LYMPHOCYTES PERCENT AUTO 4 % (21-46); MONOCYTES ABSOLUTE AUTO 2.56 K/mm3 (0.16-1.47); MONOCYTES PERCENT AUTO 9 % (4-13); Mean Corpuscular HGB Conc 32.1 g/dL (31.5-36.5); Mean Corpuscular Volume 93 fL (80-100); NEUTROPHILS ABSOLUTE AUTO 24.59 K/mm3 (1.96-9.15); NEUTROPHILS PERCENT AUTO 84 % (41-73); NRBC ABSOLUTE 0.00 K/mm3 (0.00-0.02); NRBC Auto 0.0 /100 WBC (0.0-0.2); Platelet Count 261 K/mm3 (150-400); RDW Coefficient Variation 20.6 % (11.7-14.2); RDW Standard Deviation 70.1 fL (35.1-46.3)
[2025-03-11 08:41] LABS: Alanine Aminotransfer (ALT/SGP 8.0 U/L (12-78); Albumin, Blood 1.8 g/dL (3.4-5.0); Albumin/Globulin Ratio 0.4 (0.8-1.8); Anion Gap 8.0 mmol/L (3-11); Aspartate Aminotrans (AST/SGOT 9.0 U/L (12-37); Bilirubin, Total 0.2 mg/dL (0.1-1.0); Blood Urea Nitrogen 38.0 mg/dL (8-24); CO2, Blood 22.0 mmol/L (21-32); Calcium, Blood 7.5 mg/dL (8.5-10.1); Chloride, Blood 111.0 mmol/L (98-108); Creatinine, Blood 2.72 mg/dL (0.40-1.00); Globulin, Blood 4.0 g/dL (2.2-4.0); Glucose, Blood 142.0 mg/dL (70-99); Magnesium, Blood 1.3 mg/dL (1.6-2.4); Potassium, Blood 4.4 mmol/L (3.5-5.5); Sodium, Blood 137.0 mmol/L (136-145); Total Protein, Blood 5.8 g/dL (6.4-8.2)
[2025-03-11] MEDS ORDERED: Polyethylene Glycol 3350 17 gm PO SCH (09:00)
[2025-03-11] MEDS ORDERED: Lactobacil 2-S.Thermo-Bifido 1 1 Cap PO SCH (09:00)
[2025-03-11] MEDS ORDERED: Mag Sulfate 1 GM/D5% 100ML 100 ML IV STA (09:36)
--- NOTE | 2025-03-11 10:59 | NUR ---
AT BEDSIDE FOR ASSESSMENT. NEW ORDERS PLACED FOR TELEMETRY. PT MOVED TO ROOM 306. REPORT GIVEN TO ROMEL NOYOLA.
--- NOTE | 2025-03-11 16:58 | NUR ---
SHIFT SUMMARY CLIENT IS AOX2-3. DEFICITS FROM PREVIOUS STROKE ARE NOTICABLE. CLIENT HAD SWALLOW EVAL TODAY. DIET IS NOW PUREED LEVEL 4, WITH DYSPHAGIA PRECAUTIONS IN PLACE. SURGICAL CONSULT PLACED AND CALL WAS SURGICAL CLINIC PLACED. SPOKE WITH BRITTA ABT ABOUT 1542. CLIENT'S BLOOD SUGAR WAS ELEVATED. MEDICATIONED PER EMAR. CLIENT CONTINUES IV ABT. NORMAL SALIN CONITUES TO RUN AT 75ML/HOUR VIA IV IN LEFT FOREARM. CLIENT REMAINS ON TELE. TELE STRIP FROM 1042 SHOWS SINUS RHYTHM AT 76 WITH PVC'S. BED IS IN LOW POSITION AND CALL LIGHT IS WITHIN REACH.
[2025-03-11 20:17] VITALS: BP 123/52
[2025-03-11] MEDS ORDERED: CefTRIAXone Sodium 1,000 MG in NS 100 ML IV SCH (21:00)
[2025-03-11 23:54] VITALS: BP 125/47
[2025-03-12] VITALS (17 sets, daily range): BP systolic 107–137; BP diastolic 43–90
--- NOTE | 2025-03-12 04:53 | NUR ---
AMPOULE FILLER AND SEALER SUMMARY PT A/OX2-3. PT IS MOSTLY NON VERBAL. VERBAL RESONSES ARE SLOW AND LIMITED TO A FEW WORDS. PT IS ABLE TO RESPOND TO YES/NO QUESTIONS AND USES FINGERS TO INDICATE CHOICE RESPONSES. PT HAS SIGNIFICANT RIGHT SIDE DEFICITS AND DYSPHASIA PROCAUTIONS WITH THICKENED LIQUIDS AND NO STRAW. FOLLOWED PRECAUTIONS T/O THE SHIFT. PT PLACED NPO AT MIDNIGHT FOR PLANNED CHOLEYCYSTECTOMY. PT DENIES BEING IN PAIN. LR CONT FLUIDS RUNNING AND PT GIVEN IV ABOX PER OCT. PURE WIC IN PLACE FOR URINARY INCONT. PT MODERATE TO TOTAL CARE. REGULAR ROUNDING AND Q2 TURNS DONE T/O THE SHIFT. CALL LIGHT ACCESSIBLE AND BED ALARM IN PLACE. PT HAS NOT USED HER CALL LIGHT TO MAKE NEEDS KNOWN. PT IS ABLE TO MAKE NEEDS KNOWN WHEN PROMPTED AND GIVEN TIME TO RESPOND. CARE AND REGULAR ROUNDING WILL CONTINUE UNTIL REPORT GIVEN TO ONCOMING NURSE.
[2025-03-12 08:55] LABS: BASOPHILS ABSOLUTE AUTO 0.06 K/mm3 (0.00-0.23); BASOPHILS PERCENT AUTO 0 % (0-2); EOSINOPHILS ABSOLUTE AUTO 0.01 K/mm3 (0.00-0.68); EOSINOPHILS PERCENT AUTO 0 % (0-6); Hematocrit 34.2 % (33.0-51.0); Hemoglobin 11.0 g/dL (11.5-16.0); IMMATURE GRAN ABSOLUTE AUTO 0.83 K/mm3 (0.00-0.10); IMMATURE GRAN PERCENT AUTO 3 % (0-1); LYMPHOCYTES ABSOLUTE AUTO 0.88 K/mm3 (0.84-5.20); LYMPHOCYTES PERCENT AUTO 3 % (21-46); MONOCYTES ABSOLUTE AUTO 1.88 K/mm3 (0.16-1.47); MONOCYTES PERCENT AUTO 6 % (4-13); Mean Corpuscular HGB Conc 32.2 g/dL (31.5-36.5); Mean Corpuscular Volume 94 fL (80-100); NEUTROPHILS ABSOLUTE AUTO 25.67 K/mm3 (1.96-9.15); NEUTROPHILS PERCENT AUTO 88 % (41-73); NRBC ABSOLUTE 0.00 K/mm3 (0.00-0.02); NRBC Auto 0.0 /100 WBC (0.0-0.2); Platelet Count 231 K/mm3 (150-400); RDW Coefficient Variation 21.0 % (11.7-14.2); RDW Standard Deviation 71.1 fL (35.1-46.3)
[2025-03-12 09:19] LABS: Alanine Aminotransfer (ALT/SGP 7.0 U/L (12-78); Albumin, Blood 1.8 g/dL (3.4-5.0); Albumin/Globulin Ratio 0.4 (0.8-1.8); Anion Gap 9.0 mmol/L (3-11); Aspartate Aminotrans (AST/SGOT 9.0 U/L (12-37); Bilirubin, Total 0.2 mg/dL (0.1-1.0); Blood Urea Nitrogen 47.0 mg/dL (8-24); CO2, Blood 19.0 mmol/L (21-32); Calcium, Blood 7.7 mg/dL (8.5-10.1); Chloride, Blood 114.0 mmol/L (98-108); Creatinine, Blood 3.22 mg/dL (0.40-1.00); Globulin, Blood 4.2 g/dL (2.2-4.0); Glucose, Blood 115.0 mg/dL (70-99); Magnesium, Blood 1.6 mg/dL (1.6-2.4); Potassium, Blood 4.0 mmol/L (3.5-5.5); Sodium, Blood 138.0 mmol/L (136-145); Total Protein, Blood 6.0 g/dL (6.4-8.2)
[2025-03-12] MEDS ORDERED: Ondansetron HCl 2 MG / ML 2ML Vial IV PRN (10:00)
[2025-03-12] MEDS ORDERED: NS 1,000 ML IV SCH (10:00)
[2025-03-12] MEDS ORDERED: Dexamethasone Sod Phos 10 MG/ML 1ML VIAL ONE (10:00)
[2025-03-12] MEDS ORDERED: Albuterol 2.5 MG/3 ML VIAL INH PRN (10:00)
[2025-03-12] MEDS ORDERED: FentaNYL Citrate 50 MCG/ML 2 ML Injection IV PRN ×2 (10:00)
[2025-03-12] MEDS ORDERED: Ondansetron HCl 2 MG / ML 2ML Vial ONE (10:00)
[2025-03-12] MEDS ORDERED: FentaNYL Citrate 50 MCG/ML 2 ML Injection ONE (10:01)
[2025-03-12] MEDS ORDERED: HYDROmorphone HCl/Pf 1MG SYR IV PRN (10:05)
[2025-03-12] MEDS ORDERED: Bupivacaine 0.5% HCl 5 MG/ML 30MLVIAL ONE (11:44)
[2025-03-12] MEDS ORDERED: Rocuronium Bromide 10 MG/ML 5ML Injection IV ONE ×2 (11:46→12:23)
[2025-03-12] MEDS ORDERED: Lidocaine HCl 4% 5 ML SDA ONE (11:47)
[2025-03-12] MEDS ORDERED: Sugammadex Sodium 200 MG/2ML SDV (100 MG/ML) ONE (12:29)
[2025-03-12] MEDS ORDERED: Phenylephrine HCl 100 MCG/ML-NS 10MLSYR (1MG/10ML) ONE (12:43)
--- NOTE | 2025-03-12 16:04 | NUR ---
SHIFT SUMMARY MS ISLAS HAD LAP CHOLY DONE WITH DR MARTE TODAY. SHE LEFT MEDICAL FLOOR AROUND 1045 AND RETURNED AT 1500HRS. SHE IS SLEEPY BUT EASILY AROUSES TO VOICE ON RETURN. SHE DENIED HAVING ANY PAIN. SHE HAS NOT WOKEN UP ENOUGH TO DRINK PO FLUIDS YET. SHE HAS IVF LR AT 75CC/HR INFUSING. ABDOMINAL LAPROSCOPIC SITES C,D,I. MINIMAL SS DRAINAGE TO USHA DRAIN WITH BULB SUCTION. SOME LEAKAGE AT INSERTION SITE, REINFORCED WITH LIGHT GAUZE DRESSING. BLADDER SCAN 81CC. PURE WICK IN PLACE. SHE HAD UOP PRE OP USING PURE WICK AND WAS INCONTINENT OF URINE AND STOOL IN SURGERY PER REPORT. NO UOP SINCE RETURN TO MEDICAL FLOOR. THIS MORNING MS ISLAS WAS ORIENTATED TO SELF, TO HOSPITAL PITMAN AND MARCH 2025. HER SPEACH IS MUMBLED SO UNCLEAR TO HOW ORIENTATED SHE WAS TO SITUATION, THOUGH SHE DID AGREE WHEN I REVIEWED PLAN OF CARE WITH HER. HER GRANDDAUGHTER WAS CONTACTED PRE OP. MS ISLAS DOES ANSWER QUESTIONS APPROPRIATELY WITH SHORT ANSWERS AND MUMBLED SPEACH. SR WITH SOME PVCS ON TELEMETRY. NO CALLS FROM TOBACCO CURER. BED ALARM ON. BED LOW, CALL LIGHT IN REACH.
[2025-03-12] MEDS ORDERED: Insulin Regular 100 UNIT/ML 10ML Vial SC SCH (16:30)
[2025-03-13 00:35] VITALS: BP 132/63
[2025-03-13 04:00] VITALS: BP 147/88
--- NOTE | 2025-03-13 04:44 | NUR ---
NO ACUTE CHANGES DURING SHIFT. PATIENT ON ROOM AND TELE. PATIENT HAVE LAP SITES AND USHA DRAIN-LAP SITES ARE CDI. USHA DRAIN IS TO GRAVITY SUNCTION. MEDS GIVEN CRUSHED IN APPLESAUCE AND NECTAR THICK LIQUIDS PROVIDED DURIGN SHIFT. PURWICK IN PLACE. LR RUNNING AT 75 ML/H. ORAL CARE PROVIDED DURING SHIFT. Q2 TURNS PROVIDED WITH PILLOW SUPPORT. BED ALARM ON WITH WHEELS IN LOW POSITION. CALL LIGHT WITHIN REACH
[2025-03-13 05:24] LABS: BASOPHILS ABSOLUTE AUTO 0.15 K/mm3 (0.00-0.23); BASOPHILS PERCENT AUTO 1 % (0-2); EOSINOPHILS ABSOLUTE AUTO 0.00 K/mm3 (0.00-0.68); EOSINOPHILS PERCENT AUTO 0 % (0-6); Hematocrit 32.9 % (33.0-51.0); Hemoglobin 10.1 g/dL (11.5-16.0); IMMATURE GRAN ABSOLUTE AUTO 0.84 K/mm3 (0.00-0.10); IMMATURE GRAN PERCENT AUTO 3 % (0-1); LYMPHOCYTES ABSOLUTE AUTO 0.69 K/mm3 (0.84-5.20); LYMPHOCYTES PERCENT AUTO 3 % (21-46); MONOCYTES ABSOLUTE AUTO 0.85 K/mm3 (0.16-1.47); MONOCYTES PERCENT AUTO 3 % (4-13); Mean Corpuscular HGB Conc 30.7 g/dL (31.5-36.5); Mean Corpuscular Volume 95 fL (80-100); NEUTROPHILS ABSOLUTE AUTO 22.40 K/mm3 (1.96-9.15); NEUTROPHILS PERCENT AUTO 90 % (41-73); NRBC ABSOLUTE 0.00 K/mm3 (0.00-0.02); NRBC Auto 0.0 /100 WBC (0.0-0.2); Platelet Count 261 K/mm3 (150-400); RDW Coefficient Variation 21.3 % (11.7-14.2); RDW Standard Deviation 73.1 fL (35.1-46.3)
[2025-03-13 05:46] LABS: Alanine Aminotransfer (ALT/SGP 28.0 U/L (12-78); Albumin, Blood 1.8 g/dL (3.4-5.0); Albumin/Globulin Ratio 0.4 (0.8-1.8); Anion Gap 13.0 mmol/L (3-11); Aspartate Aminotrans (AST/SGOT 57.0 U/L (12-37); Bilirubin, Total 0.3 mg/dL (0.1-1.0); Blood Urea Nitrogen 52.0 mg/dL (8-24); CO2, Blood 16.0 mmol/L (21-32); Calcium, Blood 7.8 mg/dL (8.5-10.1); Chloride, Blood 114.0 mmol/L (98-108); Creatinine, Blood 3.15 mg/dL (0.40-1.00); Globulin, Blood 4.4 g/dL (2.2-4.0); Glucose, Blood 184.0 mg/dL (70-99); Potassium, Blood 4.5 mmol/L (3.5-5.5); Sodium, Blood 138.0 mmol/L (136-145); Total Protein, Blood 6.2 g/dL (6.4-8.2)
[2025-03-13 07:56] VITALS: BP 154/72
--- NOTE | 2025-03-13 08:38 | NUR ---
pt laying in bed, slow to answer, lethargic, oriented x2-3, cooperative with care, follows commands well, denies pain this am, states she slept well, lungs are clear in upper bonilla, dim in bases, on r/a, no cough noted at this time, is being followed by speech, crushed meds in applesauce, needs assist to eat, hrr, tele in place running sb in 50's, trace edema noted to b/l le, piv o lwrist, site is clear and patent, btx4, hypoactive, purwick in place for incont, briefs in place for incont of stool, skin has lap sites and talib drain, sites are c/d/i, moves arms a bit, slow, is trying to assist with feeding, has lr infusing at 75mls/hr, bed rest at this time, ted llight in reach.
[2025-03-13] MEDS ORDERED: Pantoprazole Sodium 40 MG Injection IV SCH (09:00)
[2025-03-13 11:29] VITALS: BP 130/60
--- NOTE | 2025-03-13 14:39 | NUR ---
ASSUMED CARE OF PT PT REPORT RECEIVED, FEEDING SELF QUIETLY IN BED NO C/O PAIN NO DISTRESS, CALL LIGHT WITHIN REACH.
[2025-03-13 16:17] VITALS: BP 124/55
[2025-03-13 20:28] VITALS: BP 149/59
[2025-03-14] VITALS (7 sets, daily range): BP systolic 135–157; BP diastolic 52–64
--- NOTE | 2025-03-14 06:31 | NUR ---
SUMMARY S/P CHOLECYSTECTOMY TODAY. ORIENTED BUT WEAK. VSS. SURGICAL DRESSING DRY AND INTACT. USHA DRAIN MINIMAL THROUGHOUT. SHORTLY IN PAIN BUT MANAGEABLE. ABLE TO REST QUIETLY AT NIGHT. NEEDS ENCOURAGEMENT ON ORAL INTAKE / HYDRATION. TOLERATES PILLS GOOD. MAINTAINED ON PURWICK .
[2025-03-14 06:47] LABS: Hematocrit 28.1 % (33.0-51.0); Hemoglobin 8.9 g/dL (11.5-16.0); Mean Corpuscular HGB Conc 31.7 g/dL (31.5-36.5); Mean Corpuscular Volume 93 fL (80-100); NRBC ABSOLUTE 0.03 K/mm3 (0.00-0.02); NRBC Auto 0.1 /100 WBC (0.0-0.2); Platelet Count 262 K/mm3 (150-400); RDW Coefficient Variation 21.4 % (11.7-14.2); RDW Standard Deviation 71.3 fL (35.1-46.3)
[2025-03-14 07:17] LABS: Alanine Aminotransfer (ALT/SGP 20.0 U/L (12-78); Albumin, Blood 1.6 g/dL (3.4-5.0); Albumin/Globulin Ratio 0.4 (0.8-1.8); Anion Gap 12.0 mmol/L (3-11); Aspartate Aminotrans (AST/SGOT 21.0 U/L (12-37); Bilirubin, Total 0.5 mg/dL (0.1-1.0); Blood Urea Nitrogen 55.0 mg/dL (8-24); CO2, Blood 17.0 mmol/L (21-32); Calcium, Blood 7.7 mg/dL (8.5-10.1); Chloride, Blood 117.0 mmol/L (98-108); Creatinine, Blood 2.77 mg/dL (0.40-1.00); Globulin, Blood 3.9 g/dL (2.2-4.0); Glucose, Blood 174.0 mg/dL (70-99); Potassium, Blood 4.0 mmol/L (3.5-5.5); Sodium, Blood 142.0 mmol/L (136-145); Total Protein, Blood 5.5 g/dL (6.4-8.2)
[2025-03-14 07:18] LABS: BAND PERCENT MAN 2 % (0-8); BASOPHILS ABSOLUTE MAN 0.00 K/mm3 (0.00-0.23); BASOPHILS PERCENT MAN 0 % (0-2); EOSINOPHILS ABSOLUTE MAN 0.00 K/mm3 (0.00-0.68); EOSINOPHILS PERCENT MAN 0 % (0-6); LYMPHOCYTES ABSOLUTE MAN 0.82 K/mm3 (0.84-5.20); LYMPHOCYTES PERCENT MAN 4 % (21-46); METAMYELOCYTE ABSOLUTE MAN 0.41 K/mm3 (0.00-0.00); METAMYELOCYTE PERCENT MAN 2 % (0-0); MONOCYTES ABSOLUTE MAN 1.65 K/mm3 (0.16-1.47); MONOCYTES PERCENT MAN 8 % (4-13); MYELOCYTE ABSOLUTE MAN 0.20 K/mm3 (0.00-0.00); MYELOCYTE PERCENT MAN 1 % (0-0); NEUTROPHILS ABSOLUTE MAN 17.56 K/mm3 (1.96-9.15); SEG NEUTROPHILS PERCENT MAN 83 % (41-73)
[2025-03-14] MEDS ORDERED: NS 250 ML IV PRN (07:30)
[2025-03-14 13:57] LABS: Source, Urine Voided
[2025-03-14 14:03] LABS: Bilirubin, Urine Neg (Neg); Color, Urine Yellow (P-Yellow); Glucose Qualitative, Urine Neg (Neg); Ketones, Urine Neg (Neg); Leukocyte Esterase, Urine 3+ (Neg); Protein, Urine 3+ (Neg); Urobilinogen, Urine NORM (Normal)
[2025-03-14 14:17] LABS: Specific Gravity, Urine 1.010 (1.003-1.022)
[2025-03-14 14:19] LABS: White Blood Cells, Urine 25-50 /hpf (0-5); Yeast/Fungi Urine Many /hpf
--- NOTE | 2025-03-14 15:40 | NUR ---
SHIFT SUMMARY MS ISLAS IS ABLE TO ANSWER ORIENTATION QUESTIONS AND HAS BEEN APPROPRIATE IN HER CONVERSATION. HER SPEACH IS MUMBLED BUT UNDERSTANDABLE FOR THE MOST PART. ANALGESIA EFFECTIVE FOR MODERATE ABDOMINAL PAIN. LAPROSCOPIC SITES C,D,I. USHA DRAIN WAS REMOVED, GAUZE AND TEGADERM DRESSING OVER DRAIN SITE C,D,I. DOING INCENTIVE SPIROMETER WITH FAIR TECHNIQUE TO 500CC. OCCASIONAL NON PRODUCTIVE COUGH. UP TO RECLINER USING HUYER LIFT, TOLERATED WELL. IMPROVED PO INTAKE TODAY, ENCOURAGED AND ASSISTED WITH FOOD AND FLUIDS. ON TELEMETRY IN SR WITH [facility], NO CALLS FROM [facility]. INCREASED EDEMA TO FEET, CHUCKY HOSE APPLIED WITH IMPROVEMENT. PT C/O FEELING CONSTIPATED, GIVEN SCHEDULED MIRILAX, DR BELL INFORMED ON ROUNDS. BED LOW,. CALL LIGHT IN REACH.
--- NOTE | 2025-03-15 00:45 | NUR ---
NOTIFIED OF MULTIPLE UNSUCCESSFUL ATTEMPTS TO PLACE AN IV IN PT. UNALBE TO ADMIN IV ANTIBIOTICS. CHARGE NURSE'S UNABLE TO PLACE IV. MD VOICED UNDERSTANDING, AND WILL REVIEW CHART AND MAKE CHANGES TO POSSIBLE PO ABX. PT HAVING DYSPHAGIA, THICKENED LIQUIDS ADMINISTERED. VSS. CALL LIGHT IN REACH
[2025-03-15 04:30] VITALS: BP 150/88
--- NOTE | 2025-03-15 06:02 | NUR ---
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 PT HAS BEEN ASLEEP FOR MOST OF THE SHIFT. CHEST RISE/RESPIRATIONS NOTED. PT HAD IV ROCEPHIN ORDERED. MULTIPLE STAFF MEMBERS ATTEMPTED IV INSERTION. NONE SUCCESSFUL. MD NOTIFIED. IV ANTIBIOTICS DC'D AND PO AUGMENTIN TO START IN THE AM. USHA DRAIN REMOVED DURING AM SHIFT. DRESSING REMAINS CDI. PT HAS SIGNIFICANT R SIDED WEAKNESS, DYSPHAGIA, AND MUMBLED SPEECH D/T HX OF CVA. SPEECH UNDERSTANDABLE MOST OF THE TIME. PT TOLERATING MILDLY THICK LIQUIDS WELL. PT REMAINS ON TELE. SR AT 70. PT HAS BLE NON PITTING EDEMA. CHUCKY HOSES ON. PT CONTINUES TO HAVE NO BM THIS SHIFT. MIRALAX ADMIN. LAP CHOLY SITE WNL. OXYCODONE ADMIN 1X FOR PAIN W/ GOOD EFFECT. BED RAILS UP X 2, BED IN LOWEST POSITION, BED WHEELS LOCKED, PERSONAL BELONGINGS AND CALL LIGHT WITHIN REACH FOR SAFETY.
[2025-03-15 07:01] LABS: Hematocrit 33.7 % (33.0-51.0); Hemoglobin 10.7 g/dL (11.5-16.0); Mean Corpuscular HGB Conc 31.8 g/dL (31.5-36.5); Mean Corpuscular Volume 93 fL (80-100); NRBC ABSOLUTE 0.02 K/mm3 (0.00-0.02); NRBC Auto 0.1 /100 WBC (0.0-0.2); Platelet Count 282 K/mm3 (150-400); RDW Coefficient Variation 21.5 % (11.7-14.2); RDW Standard Deviation 72.5 fL (35.1-46.3)
[2025-03-15 07:27] LABS: BAND PERCENT MAN 1 % (0-8); BASOPHILS ABSOLUTE MAN 0.00 K/mm3 (0.00-0.23); BASOPHILS PERCENT MAN 0 % (0-2); EOSINOPHILS ABSOLUTE MAN 0.13 K/mm3 (0.00-0.68); EOSINOPHILS PERCENT MAN 1 % (0-6); LYMPHOCYTES ABSOLUTE MAN 1.10 K/mm3 (0.84-5.20); LYMPHOCYTES PERCENT MAN 8 % (21-46); MONOCYTES ABSOLUTE MAN 1.10 K/mm3 (0.16-1.47); MONOCYTES PERCENT MAN 8 % (4-13); MYELOCYTE ABSOLUTE MAN 0.82 K/mm3 (0.00-0.00); MYELOCYTE PERCENT MAN 6 % (0-0); NEUTROPHILS ABSOLUTE MAN 10.63 K/mm3 (1.96-9.15); SEG NEUTROPHILS PERCENT MAN 76 % (41-73)
[2025-03-15 07:31] VITALS: BP 160/69
[2025-03-15 07:47] LABS: Anion Gap 9.0 mmol/L (3-11); Blood Urea Nitrogen 50.0 mg/dL (8-24); CO2, Blood 21.0 mmol/L (21-32); Calcium, Blood 7.9 mg/dL (8.5-10.1); Chloride, Blood 115.0 mmol/L (98-108); Creatinine, Blood 2.45 mg/dL (0.40-1.00); Glucose, Blood 191.0 mg/dL (70-99); Potassium, Blood 4.1 mmol/L (3.5-5.5); Sodium, Blood 141.0 mmol/L (136-145)
[2025-03-15] MEDS ORDERED: Acetaminophen325 M1 PO (15:56)
[2025-03-15] MEDS ORDERED: AMOCLA500 PO (15:57)
[2025-03-15] MEDS ORDERED: MIRALAX1714 PO (15:58)
[2025-03-15] MEDS ORDERED: OXAYDO5 M2 PO (15:58)
[2025-03-15] MEDS ORDERED: SENN187 PO (15:59)
[2025-03-15] MEDS ORDERED: SODBIC650 PO (15:59)
[2025-03-15] MEDS ORDERED: VSL#3 112.5B1 EACH PO (16:00)
[2025-03-15 17:12] VITALS: BP 149/72
--- NOTE | 2025-03-15 19:21 | NUR ---
DC SUMMARY PATIENT AND BIGHT MAKER BAKARI AT BEDSIDE WITH DISCHARGE INSTRUCITONS. NEW PRESCRIPTIONS FAXED TO [facility]. HARD SCRIPT FOR OXY GIVEN TO BAKARI AND SHE TOOK TO [facility]. PACKET REVIEWED WITH PT AND BIGHT MAKER, BIGHT MAKER DOES NOT FEEL COMFORTABLE TRANSPORTING HER HOME INDEPENDENTLY SO [facility] CALLED TO ARRANGE TRANSPORT. ETA FOR PICKUP IS 1900. NO IV TO REMOVE. TELE DC'D. PT DRESSED WITH SMOKE EATER ASSISTANCE. ANTIBIOTIC AND SODIUM BICARB GIVEN PRIOR TO DISCHARGE NO BIGHT MAKER WILL BE AT HOME TO ASSIST WITH MEDS. NEPHEW AT HOME BUT DOES NOT USUALLY ASSIST PT WITH MEDS. NO OTHER QUESTIONS OR CONCERNS. REPORT GIVEN TO ROMEL MURPHY AND ORIENTEE IN THE MEANTIME.
[2025-03-15 19:34] VITALS: BP 153/72
--- NOTE | 2025-03-15 20:06 | NUR ---
DISCHARGE NOTE VSS. PT DISCHARGED TO HOME PER MD ORDERS. TRANSPORTERS HERE TO TAKE PT HOME. NO NOTED ACUTE DISTRESS. PT DISCHARGED WITH ALL BELONGINGS. CHARGE NURSE FINISHED PAPERWORK.
== END 2025-03-15 19:49 | disposition home or self-care (01) | DRG 853 ==
LOC: ER 22:26 → MEDS 03-11 02:16
PROVIDERS: Emergency Medicine; Family Medicine; Surgery; ADMIT Student in an Organized Health Care Education/Training Program
PROC: 3E03329 Introduction of Other Anti-infective into Peripheral Vein, Percutaneous Approach (ICD-10-PCS; 2025-03-11)
PROC: 0FT44ZZ Resection of Gallbladder, Percutaneous Endoscopic Approach (ICD-10-PCS; principal; 2025-03-12 12:00)
DX: A41.9 Sepsis, unspecified organism (principal); G92.8 Other toxic encephalopathy; E87.1 Hypo-osmolality and hyponatremia; N18.4 Chronic kidney disease, stage 4 (severe); J90 Pleural effusion, not elsewhere classified; I69.351 Hemiplegia and hemiparesis following cerebral infarction affecting right dominant side; I48.21 Permanent atrial fibrillation; K80.12 Calculus of gallbladder with acute and chronic cholecystitis without obstruction; I12.9 Hypertensive chronic kidney disease with stage 1 through stage 4 chronic kidney disease, or unspecified chronic kidney disease; Z66 Do not resuscitate; E11.22 Type 2 diabetes mellitus with diabetic chronic kidney disease; D63.1 Anemia in chronic kidney disease; F32.A Depression, unspecified; Z87.891 Personal history of nicotine dependence; Z87.440 Personal history of urinary (tract) infections; Z79.01 Long term (current) use of anticoagulants; Z79.82 Long term (current) use of aspirin; Z79.899 Other long term (current) drug therapy; Z88.6 Allergy status to analgesic agent
CPT/HCPCS: 36415; 70450; 71260; 74177; 76705; 80048; 80053; 81001; 82947; 83605; 83735; 85025; 87040; 87086; 88304; 92526; 92610; 93005; 93010; 94760; 96365; 99285-25; A9270; J0696; J1100; J1815; J2003; J2371; J2405; J2470; J2704; J3010; J3475; J7030; J7050; J7120; Q9967

== ENCOUNTER 2025-03-24 16:01 | Emergency (ER) | payer MEDICARE, OTHER ==
[~2025-03-24] VITALS: Ht 157.5 cm; Wt 59.0 kg
[~2025-03-24 16:01] MED LIST changes: +MIRALAX1714 PO; +OXAYDO5 M2 PO; +SENN187 PO; +SODBIC650 PO; +VSL#3 112.5B1 EACH PO
[2025-03-24] MEDS ORDERED: Pantoprazole Sodium 40 MG Injection IV ONE (16:15)
[2025-03-24] MEDS ORDERED: Ondansetron HCl 2 MG / ML 2ML Vial IV ONE (16:15)
[2025-03-24 16:19] LABS: Calcium, Ionized (POC) 1.04 mmol/L (1.10-1.46); Chloride (POC) 98 mmol/L (98-108); Creatinine (POC) 3.1 mg/dL (0.6-1.0); Glucose (ISTAT POC) 176 mg/dL (70-99); Hematocrit (POC) 32.0 % (36.0-46.0); Hemoglobin (POC) 10.9 g/dL (12.0-16.0); Potassium (POC) 3.9 mmol/L (3.5-5.5); Sodium (POC) 144 mmol/L (135-148); Total CO2 (POC) 32 mmol/L (21-32)
[2025-03-24] MEDS ORDERED: Morphine Sulfate 4 MG/1 ML Injection IV ONE (16:45)
[2025-03-24 17:16] LABS: Alanine Aminotransfer (ALT/SGP 11.0 U/L (12-78); Albumin, Blood 2.1 g/dL (3.4-5.0); Albumin/Globulin Ratio 0.5 (0.8-1.8); Anion Gap 11.0 mmol/L (3-11); Aspartate Aminotrans (AST/SGOT 9.0 U/L (12-37); Bilirubin, Total 0.2 mg/dL (0.1-1.0); Blood Urea Nitrogen 35.0 mg/dL (8-24); CO2, Blood 33.0 mmol/L (21-32); Calcium, Blood 8.5 mg/dL (8.5-10.1); Chloride, Blood 103.0 mmol/L (98-108); Creatinine, Blood 2.96 mg/dL (0.40-1.00); Globulin, Blood 4.5 g/dL (2.2-4.0); Glucose, Blood 177.0 mg/dL (70-99); Potassium, Blood 3.8 mmol/L (3.5-5.5); Sodium, Blood 143.0 mmol/L (136-145); Total Protein, Blood 6.6 g/dL (6.4-8.2)
[2025-03-24 17:16] LABS: Hematocrit 27.2 % (33.0-51.0); Hemoglobin 8.7 g/dL (11.5-16.0); Mean Corpuscular HGB Conc 32.0 g/dL (31.5-36.5); Mean Corpuscular Volume 93 fL (80-100); NRBC ABSOLUTE 0.00 K/mm3 (0.00-0.02); NRBC Auto 0.0 /100 WBC (0.0-0.2); Platelet Count 539 K/mm3 (150-400); RDW Coefficient Variation 18.6 % (11.7-14.2); RDW Standard Deviation 61.3 fL (35.1-46.3)
[2025-03-24 17:31] LABS: Prothrombin Time Results 12.4 Sec (9.7-11.5)
[2025-03-24 17:48] LABS: BAND PERCENT MAN 4 % (0-8); BASOPHILS ABSOLUTE MAN 0.00 K/mm3 (0.00-0.23); BASOPHILS PERCENT MAN 0 % (0-2); EOSINOPHILS ABSOLUTE MAN 0.00 K/mm3 (0.00-0.68); EOSINOPHILS PERCENT MAN 0 % (0-6); LYMPHOCYTES ABSOLUTE MAN 0.36 K/mm3 (0.84-5.20); LYMPHOCYTES PERCENT MAN 1 % (21-46); METAMYELOCYTE ABSOLUTE MAN 0.36 K/mm3 (0.00-0.00); METAMYELOCYTE PERCENT MAN 1 % (0-0); MONOCYTES ABSOLUTE MAN 1.84 K/mm3 (0.16-1.47); MONOCYTES PERCENT MAN 5 % (4-13); NEUTROPHILS ABSOLUTE MAN 34.23 K/mm3 (1.96-9.15); SEG NEUTROPHILS PERCENT MAN 89 % (41-73)
[2025-03-24 19:29] LABS: Hematocrit 25.3 % (33.0-51.0); Hemoglobin 8.1 g/dL (11.5-16.0)
[2025-03-24] MEDS ORDERED: Human Prothrombin Complx(Pcc) 2,000 UNIT in Water For Injection,Sterile 80 ML IV ONE (20:05)
[2025-03-25 01:45] VITALS: BP 124/44
== END 2025-03-25 02:28 | disposition home or self-care (01) ==
LOC: ER 16:01
PROVIDERS: Student in an Organized Health Care Education/Training Program
DX: K92.2 Gastrointestinal hemorrhage, unspecified (principal); D72.829 Elevated white blood cell count, unspecified; E11.22 Type 2 diabetes mellitus with diabetic chronic kidney disease; I12.9 Hypertensive chronic kidney disease with stage 1 through stage 4 chronic kidney disease, or unspecified chronic kidney disease; N18.30 Chronic kidney disease, stage 3 unspecified; I48.91 Unspecified atrial fibrillation; I69.351 Hemiplegia and hemiparesis following cerebral infarction affecting right dominant side; E78.5 Hyperlipidemia, unspecified; K21.9 Gastro-esophageal reflux disease without esophagitis; Z88.6 Allergy status to analgesic agent; Z79.01 Long term (current) use of anticoagulants; Z79.899 Other long term (current) drug therapy
CPT/HCPCS: 71045; 74177; 80047; 80053; 85014; 85018; 85025; 85610; 85730; 86850; 86900; 86901; 93005; 93010; 96374-59; 96375; 99285-25; J2270; J2405; J2470; J7168; Q9967